=== PATIENT | female | born 1930 | race Asian ===

== ENCOUNTER 2019-05-29 20:44 | Inpatient (IN) | payer MEDICARE, MEDICAID ==
[~2019-05-29] VITALS: Ht 157.5 cm; Wt 36.7 kg
[~2019-05-29 20:44] MED LIST: ACETAMINOPHEN MC; ASPIR 8181 MG ORAL; CARDIZEM60 MG ORAL; CEFEPIME-D1 GM/50 ML IVPB; EPOGEN10000 UNIT IV; ISOSORBIDE MONO20 MG PO; METOPROLOL TAR100 M1 ORAL; METRONIDAZOLE500 MG ORAL; NEPRO CARB STE PO; RANITIDINE HCL150 MG ORAL; RENA-VITE RX T1 EAC1 PO; RENAGEL800 MG ORAL; TYLENOL EXTRA500 MG ORAL; VANCOMYCIN1 GM/250 M IVPB; ZITHROMAX500 MG ORAL
[2019-05-29 20:50] VITALS: BP 101/78
--- NOTE | 2019-05-29 20:50 | NUR ---
ED Nurse Note: Pt brought into ED by HIRAM from [facility] rehab facility for c/o SOB and low oxygen saturation. Per [facility], pt oxygen saturation was in the 70's and facility placed pt on NRB at 15L oxygen. Pt presents to ED on NRB at 15L oxygen. Pt has mild labor breathing at this time, otherwise no acute distress. Pt placed on [employer], ERMD bedside. Pt had face mask placed prior to arrival by HIRAM. Dialysis access noted to pt R upper chest. Safety measures in place and ISO precuations taken. Will continue to monitor pt.
--- NOTE | 2019-05-29 20:50 | NUR ---
ED Nurse Note: Pt is awake and alert at this time and able to state her name ([id number]).
--- NOTE | 2019-05-29 21:00 | NUR ---
ED Nurse Note: Pt does desat when taken off NRB, will keep pt on NRB at 15L oxygen at this time, o2 sat 100% currently.
--- NOTE | 2019-05-29 21:00 | NUR ---
ED Nurse Note: R arm severely edematous. IV access established, blood drawn and sent to lab.
--- NOTE | 2019-05-29 21:18 | Emergency Room Report ---
History of Present Illness General Chief Complaint: Dyspnea/Respdistress Source: Medical Record Present Illness HPI 88-year-old female history of end-stage renal disease on hemodialysis coronary artery disease, A. fib, dementia, anemia, hypertension presents from halfway facility due to hypoxia. Patient came from a facility with multiple coronavirus patients. Patient demented and nonverbal unable to provide any history. She did have coronavirus testing sent today and result is currently pending. Allergies: Coded Allergies: No Known Allergies (Unverified , 05/29/19) COVID-19 Screening Contact w/high risk pt: Yes Recent Travel to affected area: No Experienced COVID-19 symptoms?: Yes COVID-19 symptoms experienced: Shortness of Breath Patient History Reviewed Nursing Documentation: PMH: Agreed; PSxH: Agreed Nursing Documentation-PMH Hx Cardiac Problems: Yes Hx Hypertension: Yes Hx Pacemaker: Yes Hx Cancer: No Hx Gastrointestinal Problems: No Hx Dialysis: Yes Hx Neurological Problems: Yes Hx Dementia: Yes Review of Systems All Other Systems: limited - History is limited due to dementia Physical Exam Vital Signs Date Time Temp Pulse Resp B/P (MAP) Pulse Ox O2 Delivery O2 Flow Rate FiO2 05/29/19 20:48 99.1 62 26 155/74 (101) 96 Non-Rebreather Sp02 EP Interpretation: reviewed, abnormal General Appearance: thin, Chronically Ill Head: normocephalic, atraumatic Eyes: bilateral eye PERRL, bilateral eye EOMI ENT: hearing grossly normal, moist mucus membranes Neck: full range of motion, supple Respiratory: respiratory distress, other - Mild respiratory distress noted, dialysis access right upper chest wall Cardiovascular #1: normal peripheral pulses, other - Paced rhythm Gastrointestinal: non tender, soft, non-distended, no guarding Musculoskeletal: other - Lower extremities contracted Neurologic: alert, no focal defects Skin: normal color, warm/dry Medical Decision Making Diagnostic Impression: Primary Impression: Suspected 2019 novel coronavirus infection Additional Impressions: Hypoxia History of end stage renal disease ER Course Patient presents hypoxic from a fdc with positive coronavirus patients. Differential diagnosis included but not limited to pneumonia, CHF, fluid overload, coronavirus infection to name a few. Patient's oxygen saturation improved with supplemental oxygen. Septic work-up initiated. Coronavirus testing was sent at [facility] and is currently pending. Patient' s chest x-ray was consistent with pneumonia. Azithromycin given. Patient will be admitted to the hospital under Dr. Gould EKG Diagnostic Results EP Interpretation: Yes Rate: normal Rhythm: other - Paced rhythm Other Impression Paced rhythm with AV dual pacemaker, abnormal EKG Rhythm Strip Diag. Results EP Interpretation: yes Rate: 82 Rhythm: no ectopy, other - Paced rhythm Chest X-Ray Diagnostic Results Chest X-Ray Diagnostic Results : Chest X-Ray Ordered: Yes # of Views/Limited/Complete: 1 View Indication: Shortness of Breath EP Interpretation: Yes Interpretation: other - Cardiomegaly, diffuse right-sided infiltrate, pneumothorax Last Vital Signs Date Time Temp Pulse Resp B/P (MAP) Pulse Ox O2 Delivery O2 Flow Rate FiO2 05/29/19 20:48 99.1 62 26 155/74 (101) 96 Non-Rebreather Disposition: ADMITTED INPATIENT Condition: Serious Referrals: NON PHYSICIAN (PCP) Te Bhandari M.D. May 29, 2019 21:18
[2019-05-29 21:20] VITALS: BP 140/90
--- NOTE | 2019-05-29 21:20 | NUR ---
ED Nurse Note: Pt repositioned in bed for comfort, provided with warm blankets. Pt is awake and alert and able to nod head yes and no to simple questions. VSS. Will continue to monitor.
--- NOTE | 2019-05-29 21:20 | NUR ---
ED Nurse Note: Unable to obtain urine from straight cath, PAULO made aware.
[2019-05-29 21:29] LABS: BASOPHILS % (AUTO) 0.5 % (0.0-2.0); EOSINOPHILS % (AUTO) 0.5 % (0.0-3.0); HEMATOCRIT 44.7 % (37.0-47.0); HEMOGLOBIN 13.8 G/DL (12.0-16.0); LYMPHOCYTES % (AUTO) 17.2 % (20.0-45.0); MEAN CORPUSCULAR VOLUME 110 FL (80-99); MONOCYTES % (AUTO) 3.7 % (1.0-10.0); NEUTROPHILS % (AUTO) 78.1 % (45.0-75.0); PLATELET COUNT 117 K/UL (150-450); RED BLOOD COUNT 4.06 M/UL (4.20-5.40); RED CELL DISTRIBUTION WIDTH 15.9 % (11.6-14.8); WHITE BLOOD COUNT 8.3 K/UL (4.8-10.8)
[2019-05-29 22:04] LABS: ANION GAP 11 mmol/L (5-15); BLOOD UREA NITROGEN 48 mg/dL (7-18); CALCIUM 8.4 MG/DL (8.5-10.1); CARBON DIOXIDE 27 MMOL/L (21-32); CHLORIDE 102 MMOL/L (98-107); CREATININE 3.8 MG/DL (0.55-1.30); POTASSIUM 5.2 MMOL/L (3.5-5.1); SODIUM 140 MMOL/L (136-145)
[2019-05-29 22:17] LABS: ALANINE AMINOTRANSFERASE 16 U/L (12-78); ALBUMIN 2.7 G/DL (3.4-5.0); ALBUMIN/GLOBULIN RATIO 0.6 (1.0-2.7); ALKALINE PHOSPHATASE 148 U/L (46-116); ASPARTATE AMINO TRANSFERASE 47 U/L (15-37); BILIRUBIN,TOTAL 0.3 MG/DL (0.2-1.0); CKMB 3.8 NG/ML (0.0-3.6); CREATINE KINASE 52 U/L (26-308)
[2019-05-29 22:20] VITALS: BP 143/54
--- NOTE | 2019-05-29 22:20 | NUR ---
ED Nurse Note: Pt turned and repositioned and provided with warm blankets. Pt is awake and alert, resting in bed. Pt denies pain. Safety measures in place, will continue monitoring pt. VSS.
[2019-05-29] MEDS ORDERED: Azithromycin 500 MG in NS 275 ML IV ONE (22:30)
[2019-05-29 23:55] VITALS: BP 96/53
--- NOTE | 2019-05-29 23:55 | NUR ---
ED Nurse Note: Pt had episode of hypotension at 2350 of 85/48, ERMD made aware. Reassessed BP at this time and BP 96/53, ERMD aware.
[2019-05-30] VITALS (10 sets, daily range): BP systolic 97–125; BP diastolic 45–101
--- NOTE | 2019-05-30 01:00 | NUR ---
ED Nurse Note: Pt appears to be sleeping comfortably at this time with no acute distress. Pt oxygen saturation is 99% and she remains on 15L oxygen via NRB. Pt vital signs are stable. Will continue to monitor.
[2019-05-30] MEDS ORDERED: Hydroxychloroquine Fact Sheet MISC ONE (01:45)
--- NOTE | 2019-05-30 02:45 | NUR ---
ED Nurse Note: Pt turned and repositioned in bed. Pt is in no acute distress and vital signs remain stable as charted. Pt able to tolerate medication as ordered. Safety measures in place. Will continue to closely monitor pt.
[2019-05-30] MEDS ORDERED: LACTULOSE20 GM/301 ORAL (03:25)
[2019-05-30] MEDS ORDERED: LIPITOR20 MG ORAL (03:25)
[2019-05-30] MEDS ORDERED: NIFEDIPINE20 MG ORAL (03:25)
[2019-05-30] MEDS ORDERED: NORCO 5-325 TA1 EAC1 ORAL (03:25)
[2019-05-30] MEDS ORDERED: SENOKOT8.6 MG PO (03:25)
[2019-05-30] MEDS ORDERED: ELIQUIS2.5 MG PO (03:25)
[2019-05-30] MEDS ORDERED: BISACODYL5 MG ORAL (03:25)
[2019-05-30] MEDS ORDERED: NOVASOURCE RE1000 M1 PO (03:25)
[2019-05-30] MEDS ORDERED: ALLOPURINOL100 M1 ORAL (03:25)
[2019-05-30] MEDS ORDERED: METOPROLOL TART50 M1 ORAL (03:25)
[2019-05-30] MEDS ORDERED: RENA-VITE TABL0.8 M1 PO (03:25)
[2019-05-30] MEDS ORDERED: ISOSORBIDE DINIT5 MG ORAL (03:25)
[2019-05-30] MEDS ORDERED: CATAPRES0.1 MG ORAL (03:25)
--- NOTE | 2019-05-30 04:45 | NUR ---
ED Nurse Note: Pt appears to be sleeping at this time, no acute distress noted. Pt is breathing normal.
[2019-05-30] MEDS: dilTIAZem HCl 60mg tab ORAL SCH ×3 (06:00→22:00)
--- NOTE | 2019-05-30 06:00 | NUR ---
ED Nurse Note: RN did not administer cardizem due to pt BP of 115/58 and HR of 60. Pt HR has been high 50's/ low 60's for past hour.
--- NOTE | 2019-05-30 06:15 | NUR ---
ED Nurse Note: Redness noted to pt sacral area, no open wound at this time and redness to pt L big toe. 2 small wounds with minimal drainage noted to pt L upper thigh.
--- NOTE | 2019-05-30 06:15 | NUR ---
ED Nurse Note: Pt repositioned and turned at this time. Pt remains on 15L oxygen via NRB. Pt is in no acute distress at this time. Vital signs remain stable. Pt provided with warm blankets for comfort. Bed is in lowest position, safety mesures in place. ISO precuations taken. Will continue to monitor pt. AM labs drawn by RN and sent to lab.
--- NOTE | 2019-05-30 07:00 | NUR ---
HAND-OFF: Report given to JULIANNA Cheek.
--- NOTE | 2019-05-30 07:01 | NUR ---
ED Nurse Note: Report received from JULIANNA Reece. PT in bed resting, no acute distress is noted. VSS as documented. will continue to monitor.
[2019-05-30 07:12] LABS: ANION GAP 11 mmol/L (5-15); BLOOD UREA NITROGEN 52 mg/dL (7-18); CALCIUM 8.6 MG/DL (8.5-10.1); CARBON DIOXIDE 25 MMOL/L (21-32); CHLORIDE 104 MMOL/L (98-107); CREATININE 3.8 MG/DL (0.55-1.30); POTASSIUM 5.1 MMOL/L (3.5-5.1); SODIUM 140 MMOL/L (136-145)
[2019-05-30 07:22] LABS: ALANINE AMINOTRANSFERASE 16 U/L (12-78); ALBUMIN 2.5 G/DL (3.4-5.0); ALBUMIN/GLOBULIN RATIO 0.6 (1.0-2.7); ALKALINE PHOSPHATASE 116 U/L (46-116); ASPARTATE AMINO TRANSFERASE 42 U/L (15-37); BILIRUBIN,TOTAL 0.3 MG/DL (0.2-1.0)
[2019-05-30 07:34] LABS: BASOPHILS % (AUTO) 0.5 % (0.0-2.0); EOSINOPHILS % (AUTO) 0.1 % (0.0-3.0); HEMATOCRIT 39.2 % (37.0-47.0); HEMOGLOBIN 12.4 G/DL (12.0-16.0); LYMPHOCYTES % (AUTO) 13.6 % (20.0-45.0); MEAN CORPUSCULAR VOLUME 107 FL (80-99); MONOCYTES % (AUTO) 3.1 % (1.0-10.0); NEUTROPHILS % (AUTO) 82.7 % (45.0-75.0); PLATELET COUNT 102 K/UL (150-450); RED BLOOD COUNT 3.66 M/UL (4.20-5.40); WHITE BLOOD COUNT 6.9 K/UL (4.8-10.8)
--- NOTE | 2019-05-30 07:39 | NUR ---
ED Nurse Note: Called rod Mai/sonal in regards to HD order. awaiting call back at this time.
[2019-05-30] MEDS: Aspirin EC 81mg tab ORAL SCH (08:48)
--- NOTE | 2019-05-30 09:07 | NUR ---
ED Nurse Note: pt in bed resting, vss as documented. no acute distress present.
--- NOTE | 2019-05-30 09:21 | Diagnostic Imaging Report ---
Indication: Shortness of breath Technique: One view of the chest Comparison: 04/01/2015 Findings: Interim placement of a right jugular tunneled dialysis catheter. There is extensive interstitial and airspace infiltrate versus edema throughout the right lung. There is a right pleural effusion. There is evidence of some volume loss of the left lung,, although this may be exaggerated by leftward patient rotation. There is considerable retrocardiac consolidation and possibly a large left pleural effusion. The left upper lung remains aerated. The heart size is difficult to assess, probably mildly enlarged. There is evidence of a prior upper lumbar vertebral augmentation procedure as well as multiple thoracolumbar vertebral body compression fracture deformities Impression: Extensive diffuse interstitial and airspace disease throughout the right lung. May reflect pneumonia or pulmonary edema. Opacified left mid and lower hemithorax, likely combination of atelectasis, parenchymal consolidation, and pleural fluid
--- NOTE | 2019-05-30 11:35 | NUR ---
Guillermo collins in [facility] - 05/30/19 at 1138 by [email or web address] HAND-OFF: Report given to JULIANNA Sapp. Endorsed POC.
--- NOTE | 2019-05-30 11:38 | NUR ---
ED Nurse Note: Report given to JULIANNA Sapp and endorsed POC.
--- NOTE | 2019-05-30 12:59 | NUR ---
ED Nurse Note: Pt in bed resting, no acute distress is noted. VSS as documented.
--- NOTE | 2019-05-30 13:57 | NUR ---
ED Nurse Note: Pt was taken to tele room 209 accompanied by RN and carpet installer helper in stable condition via ryasir with surveillance system monitor. Report given to JULIANNA dyer. pt has no belongings.
--- NOTE | 2019-05-30 14:30 | NUR ---
NURSE NOTES: Received report from JULIANNA Foster. Pt in non-rebreather mask 15L, A/O x1, non-verbal since pt came in the unit. No s/sx of acute distress or pain. Tele monitor attached. Vitals checked (BP 110/64, HR 66, RR 22, Axillary temp 97.3, O2 sat 97%). Bed on lowest position, call light within reach. Will continue to monitor.
[2019-05-30] MEDS ORDERED: Heparin Sod 1000 units/ml 10ml IV PRN (15:46)
--- NOTE | 2019-05-30 17:25 | NUR ---
NURSE NOTES: Called pt's NOK, obtained consent for HD. Explained to NOK that MD prescribed hydroxychloroquine to the pt, explained possible side effect of medication, NOK verbalized understanding and gave authorization to administer the dose. Asked the NOK to clarify the POLST of the pt, NOK stated Full code. Will inform MD about the changes.
--- NOTE | 2019-05-30 17:29 | NUR ---
NURSE NOTES: Called [facility] and talked to JULIANNA Watson. Asked if pt is able to swallow, as the med hx stated dysphagia. Walter LEVINE confirmed that pt can swallow crushed meds, with apple sauce.
--- NOTE | 2019-05-30 17:35 | NUR ---
NURSE NOTES: Informed DR Gould about the changes that the NOK wanted for the POLST of the pt.
--- NOTE | 2019-05-30 17:40 | NUR ---
NURSE NOTES: Notified Dr Gould that pt's family would like her to be full code. No code status order yet from .
--- NOTE | 2019-05-30 20:37 | NUR ---
NURSE NOTES: Nurse Mya Gonzalez and I called the next of kin, Iggy Huntley, to clarify POLST. It lists DNR but full treatment is also checked, Family member, next of kin, states he wants full code, full treatment. Discussed with charge nurse, John Underwood.
--- NOTE | 2019-05-30 20:49 | NUR ---
NURSE NOTES: POLST is unclear, will defer to hospital policy as there is no clear order. Per hospital policy pt is assumed full code when no POLST available. Dr will need to clarify POLST and discuss further with family member, Iggy Huntley further wishes and receive a signature and signed POLST.
--- NOTE | 2019-05-30 20:52 | NUR ---
NURSE NOTES: Received report from JULIANNA Roque. Pt on non-rebreather mask 15L, A/O x1, non-verbal. No s/sx of acute distress or pain. Bed in lowest position, locked, side rails x2 call light within reach. Will continue to monitor. Pt is to have hemodialysis tonight 05/29 and 05/30.
--- NOTE | 2019-05-30 21:12 | NUR ---
HAND-OFF: Report given to JULIANNA Busby. Pt in stable condition. Endorsed plan of care.
--- NOTE | 2019-05-30 22:49 | NUR ---
NURSE NOTES: Pt completed dialysis, 3 L removed, in no acute distress, resting at this time.
[2019-05-31] VITALS: BP 115/62
--- NOTE | 2019-05-31 03:00 | Progress Note ---
DATE: 05/30/2019 CARDIOLOGY PROGRESS NOTE SUBJECTIVE: The patient still has congestion, cough, some shortness of breath. She is afebrile, sinus rhythm. PHYSICAL EXAMINATION: VITAL SIGNS: Blood pressure 125/60, pulse 60, respiratory rate 22. LUNGS: Bilateral breath sounds. Diminished at the left. HEART: Regular rhythm and rate. Normal S1, S2 with 1/6 systolic murmur at base. ABDOMEN: Soft. EXTREMITIES: No edema. LABORATORY AND DIAGNOSTIC DATA: Sodium 140, potassium 5.1, bicarb 25, BUN 52, creatinine 3.8. Troponin . Natriuretic peptide over 35,000. White count 6.9, hemoglobin 12.4. Qtc interval is 425 milliseconds. IMPRESSION: 1. COVID-19 pneumonia. 2. Pleural effusions. 3. Acute on chronic diastolic congestive heart failure. 4. Paroxysmal atrial fibrillation. 5. End-stage renal disease. PLAN: 1. Antimicrobials including hydroxychloroquine. 2. Hemodialysis with ultrafiltration. 3. Titrate cardiovascular regimen. 4. Monitor electrolytes closely. 5. Monitor QTc interval, we will follow. Brant Gould M.D. DR: Linda JOB#: [id number] CC:
[2019-05-31 04:00] VITALS: BP 113/51
[2019-05-31] MEDS ORDERED: Heparin Sod 1000 units/ml 10ml IV PRN (06:00)
[2019-05-31] MEDS: dilTIAZem HCl 60mg tab ORAL SCH ×3 (06:00→21:09)
--- NOTE | 2019-05-31 07:22 | NUR ---
HAND-OFF: Report given to JULIANNA Cardona.
[2019-05-31 08:00] VITALS: BP 112/57
--- NOTE | 2019-05-31 08:00 | NUR ---
NURSE NOTES: Received report from Ting/RN, Patient is asleep, lying semi-garcía, resting comfortably. On 15L non-rebreather mask, No distress/SOB noted. potline monitor in place. IV on Left Hand, patent, and asymptomatic. Robina pain at this time. Bed in low position and locked, Call light within reach, Encouraged to use call light when needed. Will continue plan of care.
[2019-05-31] MEDS: Aspirin EC 81mg tab ORAL SCH (09:16)
[2019-05-31 12:00] VITALS: BP 104/56
--- NOTE | 2019-05-31 12:44 | General Progress Note ---
Assessment/Plan Problem List: (1) Paroxysmal a-fib ICD Codes: I48.0 - Paroxysmal atrial fibrillation SNOMED: 419752302 (2) Atrial fibrillation with rapid ventricular response ICD Codes: I48.91 - Unspecified atrial fibrillation SNOMED: 76392695, 581771015, 295756975921588 (3) Septic shock ICD Codes: A41.9 - Sepsis, unspecified organism; R65.21 - Severe sepsis with septic shock SNOMED: 72832712 (4) Hypoxia ICD Codes: R09.02 - Hypoxemia SNOMED: 040118706 (5) Pneumonia ICD Codes: J18.9 - Pneumonia, unspecified organism SNOMED: 621007399 (6) End stage renal disease ICD Codes: N18.6 - End stage renal disease SNOMED: 19510957 (7) History of end stage renal disease ICD Codes: Z87.448 - Personal history of other diseases of urinary system SNOMED: 558073454 (8) Suspected 2019 novel coronavirus infection ICD Codes: R68.89 - Other general symptoms and signs SNOMED: 235722270 Status: stable Assessment/Plan: Continue IV antibiotics per ID. Follow-up positive blood cultures. Consider deseeding PermCath if cultures come back. Coronavirus treatment per ID. Dialysis per renal. Supplemental oxygen titrate to keep sats greater than 92%. DVT and stress ulcer prophylaxis. Monitor blood pressure. Prognosis is guarded. Subjective ROS Limited/Unobtainable: No Constitutional: Reports: malaise, weakness HEENT: Reports: no symptoms Cardiovascular: Reports: no symptoms Respiratory: Reports: cough Gastrointestinal/Abdominal: Reports: no symptoms Genitourinary: Reports: no symptoms Neurologic/Psychiatric: Reports: depressed Endocrine: Reports: no symptoms Hematologic/Lymphatic: Reports: anemia Allergies: Coded Allergies: No Known Allergies (Unverified , 05/29/19) All Systems: reviewed and negative except above Subjective No overnight events. Stable on oxygen. No fevers or chills. No distress. On Truxima IV antibiotics. Cultures are growing gram-positive cocci in clusters. Objective Last 24 Hour Vital Signs Date Time Temp Pulse Resp B/P (MAP) Pulse Ox O2 Delivery O2 Flow Rate FiO2 05/31/19 06:00 60 110/62 05/31/19 04:00 57 05/31/19 04:00 15.0 05/31/19 04:00 99.8 65 20 113/51 (71) 96 05/31/19 00:00 81 05/31/19 00:00 15.0 05/31/19 00:00 99.6 85 22 115/62 (79) 96 05/30/19 22:00 58 125/60 05/30/19 21:19 98.0 60 22 125/60 (81) 92 05/30/19 21:00 Non-Rebreather 15.0 05/30/19 20:00 61 05/30/19 20:00 15.0 05/30/19 20:00 15.0 05/30/19 20:00 98.0 60 22 125/60 (81) 92 05/30/19 18:45 66 110/64 05/30/19 16:00 15.0 05/30/19 15:51 57 05/30/19 15:48 Non-Rebreather 05/30/19 13:57 98.0 61 20 110/80 98 Non-Rebreather 15.0 05/30/19 12:57 97.8 60 19 112/72 97 Non-Rebreather 15.0 Intake and Output 05/30/19 05/31/19 19:00 07:00 Intake Total 410 ml Output Total 2500 ml Balance 410 ml -2500 ml Intake Oral 410 ml Hemodialysis UF 2500 ml # Voids 3 Height (Feet): 5 Height (Inches): 2.00 Weight (Pounds): 126 General Appearance: WD/WN, alert, lethargic, confused Neck: supple Cardiovascular: normal rate, regular rhythm Respiratory/Chest: chest wall non-tender, lungs clear, normal breath sounds, no respiratory distress, no accessory muscle use Abdomen: normal bowel sounds, non tender, soft Edema: no edema noted Arm (L), no edema noted Arm (R), no edema noted Leg (L), no edema noted Leg (R), no edema noted Pedal (L), no edema noted Pedal (R), no edema noted Generalized Neurologic: disoriented, unresponsive Objective chest wall perm cath Denis Whitlock MD May 31, 2019 12:44
[2019-05-31] MEDS ORDERED: Vancomycin 1gm/D5W 275ml IVPB ONE ×2 (14:30)
[2019-05-31 16:00] VITALS: BP 107/67
[2019-05-31] MEDS ORDERED: Tubing IV Secondary IV ONE (16:51)
--- NOTE | 2019-05-31 17:14 | Consultation ---
DATE OF CONSULTATION: 05/31/2019 INFECTIOUS DISEASES CONSULTATION CONSULTING PHYSICIAN: Dwight Soto M.D. REFERRING PHYSICIAN: Brant Gould M.D. REASON FOR CONSULTATION: To rule out COVID-19 pneumonia. HISTORY OF PRESENTING ILLNESS: This is an 88-year-old lady with history of renal failure, on dialysis, coronary artery disease, dementia, hypertension, who came in from a long term facility with hypoxia. There was a concern for a COVID-19 pneumonia and an Infectious Diseases consultation has been obtained for antibiotics. PAST MEDICAL HISTORY: 1. History of hypertension. 2. History of renal failure on dialysis. 3. Coronary artery disease. 4. Dementia. 5. Atrial fibrillation. 6. Anemia. SOCIAL HISTORY: Unknown. FAMILY HISTORY: Unknown. REVIEW OF SYSTEMS: Unable to obtain currently. MEDICATIONS: As an inpatient, she is on hydroxychloroquine, heparin, , aspirin, Renvela, diltiazem. ALLERGIES: No known drug allergies. PHYSICAL EXAMINATION: VITAL SIGNS: Temperature of 99.8, T-max of 99.8, pulse of 60, respiratory rate 20, blood pressure 110/62, O2 saturation of 96%. Examination deferred due to possibility of COVID-19 pneumonia. LABORATORY AND DIAGNOSTIC DATA: Labs, white count 6.9, hemoglobin 12.4, hematocrit 39.2, MCV 107, platelet count of 102,000, neutrophils of 82%. Sodium 140, potassium 5.1, chloride 104, bicarb 25, BUN 52, creatinine 3.8, glucose 95, calcium 8.6. Total bilirubin 0.3, AST 42, ALT 16, and alkaline phosphatase 116. Troponin 0.16. Beta-natriuretic peptide . Total protein 6.8, albumin 2.5. Hepatitis B surface antigen is pending. Blood cultures are growing gram-positive cocci in clusters. Chest x-ray showing extensive diffuse interstitial and airspace disease throughout the right lung may reflect pneumonia, pulmonary edema, opacified left mid and lower hemithorax likely combination of atelectasis and consolidation and pleural fluid. ASSESSMENT: This is an 88-year-old lady with history of hypertension, dementia, renal failure, on dialysis, coronary artery disease, who comes in with hypoxia: 1. Would like to rule out COVID-19 pneumonia. 2. Hypertension. 3. Dementia. 4. Renal failure, on dialysis. 5. Gram-positive sepsis. PLAN: 1. Continue hydroxychloroquine. 2. Continue contact isolation. 3. We will start the patient on IV vancomycin. 4. We will follow up cultures and adjust antibiotics accordingly. I would like to thank, Dr. Gould for this consultation. Dwight Soto M.D. DR: BRYAN JOB#: [id number] CC: Brant Gould M.D.
--- NOTE | 2019-05-31 19:45 | NUR ---
HAND-OFF: Report given to Krunal/RN, Patient is lying semi-garcía's, resting comfortably. Endorsed plan of care.
--- NOTE | 2019-05-31 19:51 | NUR ---
NURSE NOTES: Report received from JULIANNA Cardona. Patient on semi-garcía's position. on 15L nonrebreather mask. IV intact and flushed. No erythema, bleeding, or infiltration. AOX1. Arousable and responds to name. Bed rails raised x2. Bed in lowest position. Repositioned. Call light placed within reach. Will continue to monitor.
[2019-05-31 20:00] VITALS: BP 140/57
--- NOTE | 2019-05-31 20:44 | Consultation ---
DATE OF CONSULTATION: 05/31/2019 PULMONARY CONSULTATION CONSULTING PHYSICIAN: Aleks Cabrera MD. HISTORY OF PRESENT ILLNESS: This is an 88-year-old female brought in from the [place] [facility] with a history of hypoxia. The patient has been exposed to multiple patients with COVID-19 positivity at the [place] [facility]. The patient has dementia, unable to verbalize any history. Currently, her COVID-19 status is unknown. She is influenza A and B negative. The patient was noted to be hypoxic and desaturating. Nurses placed her on a nonrebreather mask. CURRENT MEDICATIONS: Include aspirin, Cardizem, subcu heparin, the patient has received Plaquenil, and is also on Renvela. She also got vancomycin. PAST MEDICAL HISTORY: Notable for hypertension, permanent pacemaker, previous CVA, dementia. She is a dialysis patient. REVIEW OF SYSTEMS: Unreliable. PHYSICAL EXAMINATION: GENERAL: Reveals elderly female. VITAL SIGNS: Blood pressure 150/70, heart rate 68, respirations 22, T-max 100.1, O2 sat 96% on non-rebreather mask. HEENT: Unremarkable. LUNGS: Decreased breath sounds bilaterally. HEART: Normal heart sounds. CHEST: She has a pacemaker noted. Dialysis access in right upper chest wall. ABDOMEN: Soft. EXTREMITIES: There is no edema. Her lower extremities are contracted. LABORATORY AND DIAGNOSTIC DATA: X-ray of chest shows opacification in the left and mid lower thorax, suspect pneumonia. There is extensive diffuse disease throughout both lung gutierrez. Hemoglobin 12.4, white count 6.9. Creatinine 3.8. There is a dual-chamber pacemaker noted. IMPRESSION: 1. Probable COVID-19 pneumonia. 2. Pulmonary edema. 3. ESRD, on dialysis. 4. CHF. 5. Atrial fibrillation. DISCUSSION: Admit to the hospital. I have reviewed the x-ray personally. I do not see a clear evidence of an effusion; however, the film is located with obscuring of the left lower lung field due to enlarged cardiac silhouette and right lung field with extensive infiltrates. We will follow carefully. Agree with oxygen and pulmonary hygiene. We will investigate code status when available. Aleks Cabrera M.D. DR: LIZZETH JOB#: [id number] CC:
--- NOTE | 2019-05-31 23:15 | Consultation ---
DATE OF CONSULTATION: CONSULTING PHYSICIAN: Bruce Lainez MD. REFERRING PHYSICIAN: Denis Whitlock MD. REASON FOR CONSULTATION: End-stage renal disease, shortness of breath. HISTORY OF PRESENT ILLNESS: The patient presents with shortness of breath. She is in COVID isolation as she has bilateral infiltrates and there was concern for CHF. She is an 88-year-old [place] lady with end-stage renal disease via PermCath, history is taken from chart review. The patient is not Polish speaking. She was hospitalized 04/13/2019, [address] [facility] for failure to thrive, multiple wounds, and possible pneumonia at that time. There is a history of hypertension, gastritis, recurrent fungal infections, spinal stenosis, multiple decubitus ulcers. PAST SURGICAL HISTORY: PermCath and multiple dialysis, AV access, which fails. HABITS: She is a nonsmoker, nondrinker, advanced directives are DNR. MEDICATIONS: Include the following Lipitor, isosorbide, Senokot, Nicole-Sandhya, DSS, Fertile, metoprolol, nifedipine, Eliquis, allopurinol, Dulcolax suppository, Tylenol, lactulose, clonidine, Mircera. REVIEW OF SYSTEMS: The patient is unable. On prior hospitalizations, she had acute lactic acidosis, bilateral pleural effusions, urinary tract infection, acute pulmonary edema. PHYSICAL EXAMINATION: GENERAL: The patient is seen on dialysis, has the dialysis PermCath. VITAL SIGNS: Temperature 97.4, pulse 63, respirations 18, blood pressure 104/56. HEAD EYES, EARS, NOSE, AND THROAT: There is no scleral icterus. Oral mucosa moist. NECK: No adenopathy. LUNGS: She is tachypneic, distant breath sounds. HEART: Regular rhythm. No murmur. ABDOMEN: Soft. No focal tenderness. EXTREMITIES: No edema. LABORATORY DATA: Her pertinent labs show white count of 6.9, hemoglobin 12.4. Initial sodium 140, potassium 5.2, BUN 48, creatinine 3.8. Troponin 0.155 and 0.160. BNP greater than 35,000. Albumin 2.7. IMPRESSION: 1. End-stage renal disease. 2. Congestive heart failure, acute on chronic. 3. Pulmonary infiltrates, possible from CHF, possible pneumonia. 4. Rule out COVID-19. 5. Moderate to severe protein-calorie malnutrition. 6. History of hypertension. 7. History of decubiti. 8. History of gastritis. 9. History of spinal stenosis. 10. History of bedridden state. 11. The patient had serial dialysis for fluid removal. We will follow up on chest x-ray. COVID-19. Received pulmonary care. Condition is guarded in view of her multiple comorbidities. Bruce Lainez M.D. DR: AMELIA JOB#: [id number] CC:
[2019-06-01] VITALS: BP 138/55
--- NOTE | 2019-06-01 02:25 | NUR ---
NURSE NOTES: Patient comfortably asleep on bed. On 15L nonrebreather mask. Bed rails raised. Bed in lowest position. Call light placed within reach. No signs of acute distress or shortness of breath. Will continue to monitor.
--- NOTE | 2019-06-01 03:44 | Progress Note ---
DATE: 05/31/2019 CARDIOLOGY PROGRESS NOTE SUBJECTIVE: The patient remains on oxygen supplementation with some congestion noted. Blood cultures are positive. She remains on isolation for COVID-19. OBJECTIVE: VITAL SIGNS: Blood pressure 110/62, heart rate 60, respiratory rate 20, temperature 99.8. Monitored rhythm, AFib with ventricular pacing by demand. LUNGS: Bilateral breath sounds. Rhonchi. CARDIAC: Irregularly irregular rhythm. Normal S1, S2. A 1/6 systolic murmur at apex. ABDOMEN: Soft. EXTREMITIES: Trace edema. SKIN: PermCath site with no drainage. LABORATORY DATA: No new labs today. IMPRESSION: 1. Sepsis. 2. Bacteremia. 3. COVID-19 pneumonia. 4. End-stage renal disease. 5. Paroxysmal atrial fibrillation. 6. Permanent pacemaker. 7. Acute on chronic diastolic congestive heart failure. 8. Acute myocardial ischemia and possible qve-HL-axrgucksp infarction. 9. Severe protein-calorie malnutrition. 10. Critical and guarded. 11. Increased risk for endocarditis. PLAN: 1. Hemodialysis with ultrafiltration. 2. Respiratory hygiene. 3. Cardiac monitoring. 4. Observe for increasing QT interval on hydroxychloroquine therapy. 5. Antimicrobials per Infectious Disease [employer] consultant. 6. Possible need to remove and replace PermCath. 7. Follow up blood culture results. 8. Echocardiogram. 9. Titrate cardiovascular regimen based on clinical parameters including blood pressure and heart failure management. Brant Gould M.D. DR: Zakia JOB#: [id number] CC:
[2019-06-01 04:00] VITALS: BP 121/57
--- NOTE | 2019-06-01 04:00 | Consultation ---
DATE OF CONSULTATION: 05/29/2019 CARDIOLOGY CONSULTATION CONSULTING PHYSICIAN: Brant Gould MD. REQUESTING PHYSICIAN: Denis Whitlock MD. REASON FOR CONSULTATION: Cardiovascular management in the setting of COVID-19 pneumonia and underlying cardiomyopathy. HISTORY OF PRESENT ILLNESS: This is an 88-year-old female who resides at a [facility] facility, who was noted to be hypoxic and congested with a positive COVID-19 swab noted. She was transferred to the emergency room for evaluation and further care. PAST MEDICAL HISTORY: Includes coronary artery disease, paroxysmal atrial fibrillation, permanent pacemaker, end-stage renal disease on hemodialysis, cerebrovascular disease with dementia, anemia of chronic kidney disease, and hypertensive heart disease. ALLERGIES: None known. MEDICATIONS: Medications prior to admission, reviewed and reconciled. FAMILY HISTORY: Noncontributory. SOCIAL HISTORY: Negative for smoking, alcohol, or substance abuse. REVIEW OF SYSTEMS: Cannot be obtained from the patient; however, pertinent data from review of medical records and [facility] facility chart is performed x20 minutes and outlined above. PHYSICAL EXAMINATION: VITAL SIGNS: Temperature 99.1, blood pressure 155/74, heart rate 62, respiratory rate 26. GENERAL: Temporal wasting, ill appearing, mild congestion, and respiratory distress. LUNGS: Bilateral rhonchi. CARDIAC: Irregularly irregular rhythm. Normal S1 and S2 with a 1/6 systolic murmur at the apex. ABDOMEN: Soft, nontender. PermCath site is clean and dry on the chest. EXTREMITIES: There is no edema. NEUROLOGIC: Reveals mild cognitive impairment. LABORATORY AND DIAGNOSTIC DATA: EKG reveals AV sequential pacing. Chest x-ray reveals bilateral infiltrates. White count 8.3, hemoglobin 13.8. Sodium 140, potassium 5.2. Troponin 0.155. Bicarb 27, BUN 48, creatinine 3.8, albumin 2.7. IMPRESSION: 1. COVID-19 pneumonia. 2. End-stage renal disease. 3. Cardiomyopathy. 4. Hypertensive heart disease. 5. Coronary atherosclerosis. 6. Acute on chronic diastolic congestive heart failure. 7. Acute myocardial ischemia. 8. Possible woz-SM-xerujyrbd infarction. 9. Moderate protein-calorie malnutrition. 10. Cerebrovascular disease with dementia. 11. Permanent pacemaker. 12. Paroxysmal atrial fibrillation. PLAN: 1. Cardiac monitoring. 2. Respiratory hygiene. 3. Infectious Disease evaluation. 4. Safety use of hydroxychloroquine, however, cannot reliably monitor QTc interval with paced rhythm. 5. We will need to monitor electrolytes closely. 6. Hemodialysis with ultrafiltration. 7. Follow up culture results. 8. Empiric antimicrobials. 9. Serial troponins. 10. Anti-platelet therapy and beta-blockade if blood pressure parameters can tolerate. Brant Gould M.D. DR: Zakia JOB#: [id number] CC:
[2019-06-01] MEDS: dilTIAZem HCl 60mg tab ORAL SCH ×3 (06:32→22:00)
--- NOTE | 2019-06-01 07:22 | NUR ---
NURSE NOTES: Received report from JULIANNA Saxena. Patient in bed resting, no active s/s cardiac, respiratory distress noticed at this time. Patient in bed resting, no active s/s cardiac, respiratory distress noticed at this time. Endorsed patient was on Non-rebreather 15L during the night O2 sat 95%. IV on left hand 22G, asymptomatic, patent, intact. Endorsed patient scheduel for HD today 06/01/19, already called [facility] nephrology, COVID 19 specimen sent yesterday 05/31/19. Bed in lowest position, side rails upx2, call light within reach, bed alarm on. Will continue to monitor.
--- NOTE | 2019-06-01 07:56 | NUR ---
HAND-OFF: Report given to JULIANNA Fleming. Plan of care endorsed.
[2019-06-01 08:00] VITALS: BP 115/54
[2019-06-01] MEDS: Aspirin EC 81mg tab ORAL SCH (08:47)
--- NOTE | 2019-06-01 08:48 | General Progress Note ---
Assessment/Plan Problem List: (1) Paroxysmal a-fib ICD Codes: I48.0 - Paroxysmal atrial fibrillation SNOMED: 183635830 (2) Atrial fibrillation with rapid ventricular response ICD Codes: I48.91 - Unspecified atrial fibrillation SNOMED: 38355298, 137127472, 759464495330466 (3) Septic shock ICD Codes: A41.9 - Sepsis, unspecified organism; R65.21 - Severe sepsis with septic shock SNOMED: 69133714 (4) Hypoxia ICD Codes: R09.02 - Hypoxemia SNOMED: 056370014 (5) Pneumonia ICD Codes: J18.9 - Pneumonia, unspecified organism SNOMED: 867236655 (6) End stage renal disease ICD Codes: N18.6 - End stage renal disease SNOMED: 62278786 (7) History of end stage renal disease ICD Codes: Z87.448 - Personal history of other diseases of urinary system SNOMED: 031232265 (8) Suspected 2019 novel coronavirus infection ICD Codes: R68.89 - Other general symptoms and signs SNOMED: 887340935 Status: stable Assessment/Plan: Continue IV antibiotics per ID. Follow-up positive blood cultures. perm cath care. Coronavirus treatment per ID. Dialysis per renal. Supplemental oxygen titrate to keep sats greater than 92%. DVT and stress ulcer prophylaxis. Monitor blood pressure. Prognosis is guarded. Subjective ROS Limited/Unobtainable: No Constitutional: Reports: malaise, weakness HEENT: Reports: no symptoms Cardiovascular: Reports: no symptoms Respiratory: Reports: shortness of breath Gastrointestinal/Abdominal: Reports: no symptoms Genitourinary: Reports: no symptoms Neurologic/Psychiatric: Reports: pre-existing deficit Endocrine: Reports: no symptoms Hematologic/Lymphatic: Reports: anemia Allergies: Coded Allergies: No Known Allergies (Unverified , 05/29/19) All Systems: reviewed and negative except above Subjective No overnight events. Stable on oxygen(NRB). has pills in her mouth, No fevers or chills. No distress. On IV antibiotics. cultures noted. Objective Last 24 Hour Vital Signs Date Time Temp Pulse Resp B/P (MAP) Pulse Ox O2 Delivery O2 Flow Rate FiO2 06/01/19 06:32 68 121/57 06/01/19 04:00 86 06/01/19 04:00 99.9 68 21 121/57 (78) 98 06/01/19 04:00 15.0 06/01/19 00:00 99.4 81 21 138/55 (82) 95 06/01/19 00:00 15.0 06/01/19 00:00 75 05/31/19 21:09 73 140/57 05/31/19 21:00 Non-Rebreather 15.0 05/31/19 20:00 99.9 73 23 140/57 (84) 98 05/31/19 20:00 15.0 05/31/19 20:00 62 05/31/19 16:00 15.0 05/31/19 16:00 60 05/31/19 16:00 97.1 69 18 107/67 (80) 95 05/31/19 14:00 68 104/56 05/31/19 12:00 97.4 63 18 104/56 (72) 95 05/31/19 12:00 68 05/31/19 12:00 15.0 05/31/19 09:00 Non-Rebreather 15.0 Intake and Output 05/31/19 06/01/19 19:00 07:00 Intake Total 600 ml 180 ml Output Total 6000 ml 450 ml Balance -5400 ml -270 ml Intake Oral 600 ml 180 ml Output Urine Total 450 ml Hemodialysis UF 6000 ml # Voids 1 1 Height (Feet): 5 Height (Inches): 2.00 Weight (Pounds): 126 General Appearance: WD/WN, lethargic, confused Neck: supple Cardiovascular: regular rhythm Respiratory/Chest: no respiratory distress, no accessory muscle use, rhonchi - bilaterally Abdomen: normal bowel sounds, non tender, soft, no organomegaly Edema: no edema noted Arm (L), no edema noted Arm (R), no edema noted Leg (L), no edema noted Leg (R), no edema noted Pedal (L), no edema noted Pedal (R), no edema noted Generalized Objective chest wall perm cath Denis Whitlock MD Jun 01, 2019 08:48
[2019-06-01] MEDS ORDERED: Heparin 1000 units/ml 1ml Vial IV PRN (09:00)
--- NOTE | 2019-06-01 10:19 | NUR ---
NURSE NOTES: Dr. Whitlock made aware patient was running low grade fever, 99.8, since last night, no new order at this time. Will continue to follow up.
--- NOTE | 2019-06-01 10:24 | NUR ---
NURSE NOTES: Per Dr. Whitlock, Tylenol 650mg PO q4h prn. Order noted, entered, carried out.
--- NOTE | 2019-06-01 11:11 | Pulmonology Progress Note ---
Assessment/Plan Assessment/Plan IMPRESSION: 1. Probable COVID-19 pneumonia. 2. Pulmonary edema. 3. ESRD, on dialysis. 4. CHF. 5. Atrial fibrillation. DISCUSSION: I have reviewed the x-ray personally. I do not see a clear evidence of an effusion; however, the film is rotated with obscuring of the left lower lung field due to enlarged cardiac silhouette; her right lung field has extensive infiltrates. I will follow carefully. Agree with oxygen and pulmonary hygiene. Aleks Cabrera M.D. Subjective Interval Events: None new Constitutional: Reports: no symptoms HEENT: Repors: no symptoms Respiratory: Reports: shortness of breath Cardiovascular: Reports: no symptoms Gastrointestinal/Abdominal: Reports: no symptoms Allergies: Coded Allergies: No Known Allergies (Unverified , 05/29/19) Objective Last 24 Hour Vital Signs Date Time Temp Pulse Resp B/P (MAP) Pulse Ox O2 Delivery O2 Flow Rate FiO2 06/01/19 09:00 Non-Rebreather 15.0 06/01/19 08:00 76 06/01/19 08:00 99.9 70 21 115/54 (74) 94 06/01/19 08:00 14.0 06/01/19 06:32 68 121/57 06/01/19 04:00 86 06/01/19 04:00 99.9 68 21 121/57 (78) 98 06/01/19 04:00 15.0 06/01/19 00:00 99.4 81 21 138/55 (82) 95 06/01/19 00:00 15.0 06/01/19 00:00 75 05/31/19 21:09 73 140/57 05/31/19 21:00 Non-Rebreather 15.0 05/31/19 20:00 99.9 73 23 140/57 (84) 98 05/31/19 20:00 15.0 05/31/19 20:00 62 05/31/19 16:00 15.0 05/31/19 16:00 60 05/31/19 16:00 97.1 69 18 107/67 (80) 95 05/31/19 14:00 68 104/56 05/31/19 12:00 97.4 63 18 104/56 (72) 95 05/31/19 12:00 68 05/31/19 12:00 15.0 Intake and Output 05/31/19 06/01/19 19:00 07:00 Intake Total 600 ml 180 ml Output Total 6000 ml 450 ml Balance -5400 ml -270 ml Intake Oral 600 ml 180 ml Output Urine Total 450 ml Hemodialysis UF 6000 ml # Voids 1 1 General Appearance: no acute distress HEENT: normocephalic Respiratory/Chest: chest wall non-tender, decreased breath sounds Cardiovascular: normal peripheral pulses Abdomen: normal bowel sounds Microbiology Date/Time Source Procedure Growth Status 05/29/19 21:00 Blood Blood Culture - Preliminary NO GROWTH AFTER 48 HOURS Resulted 05/29/19 20:45 Blood Blood Culture - Final Staphylococcus Warneri Complete 05/30/19 06:00 Nasal Nares MRSA Culture - Final NO METHICILLIN RESISTANT STAPH AUREUS... Complete 05/29/19 21:00 Nasal Nares - Final Complete 05/29/19 21:00 Nasal Nares - Final Complete 05/30/19 06:00 Rectum VRE Culture - Final NO VANCOMYCIN RESISTANT ENTEROCOCCUS ... Complete 05/30/19 06:00 Rectum Received Current Medications Medications (Trade) Dose Ordered Sig/Debra Route PRN Reason Start Time Stop Time Status Last Admin Dose Admin Acetaminophen (Tylenol) 650 mg Q4H PRN ORAL Temp >100.5 06/01/19 10:30 07/01/19 10:29 Albumin Human 100 ml @ 200 mls/hr PRN PRN IV sbp<90 during hd 06/01/19 09:00 06/01/19 23:59 Aspirin (Ecotrin) 81 mg DAILY ORAL 05/30/19 09:00 07/14/19 08:59 06/01/19 08:47 Diltiazem HCl (Cardizem) 60 mg EVERY 8 HOURS ORAL 05/31/19 14:00 06/30/19 13:59 06/01/19 06:32 Heparin Sodium (Porcine) (Heparin) 500 unit ONCE PRN IV dialysis 06/01/19 09:00 06/01/19 23:59 Hydroxychloroquine Sulfate (Plaquenil) 200 mg TWICE A DAY ORAL 05/31/19 09:00 06/03/19 18:01 06/01/19 08:47 Sevelamer Carbonate (Renvela) 800 mg TIAC ORAL 05/30/19 06:55 08/28/19 06:54 06/01/19 06:32 Vancomycin HCl (Vanco rx to dose) 1 ea DAILY PRN MISC Per rx protocol 05/31/19 12:00 06/30/19 11:59 Aleks Cabrera MD Jun 01, 2019 11:11
[2019-06-01 12:00] VITALS: BP 117/58
[2019-06-01 14:03] LABS: BASOPHILS % (AUTO) 0.2 % (0.0-2.0); EOSINOPHILS % (AUTO) 0.3 % (0.0-3.0); HEMATOCRIT 38.6 % (37.0-47.0); HEMOGLOBIN 12.7 G/DL (12.0-16.0); LYMPHOCYTES % (AUTO) 11.4 % (20.0-45.0); MEAN CORPUSCULAR VOLUME 103 FL (80-99); MONOCYTES % (AUTO) 3.3 % (1.0-10.0); NEUTROPHILS % (AUTO) 84.8 % (45.0-75.0); PLATELET COUNT 129 K/UL (150-450); RED BLOOD COUNT 3.76 M/UL (4.20-5.40); RED CELL DISTRIBUTION WIDTH 14.3 % (11.6-14.8)
[2019-06-01 14:43] LABS: CALCIUM 8.9 MG/DL (8.5-10.1)
[2019-06-01 14:44] LABS: CHLORIDE 106 MMOL/L (98-107); POTASSIUM 3.9 MMOL/L (3.5-5.1); SODIUM 147 MMOL/L (136-145)
[2019-06-01 14:45] LABS: ANION GAP 13 mmol/L (5-15); BLOOD UREA NITROGEN 41 mg/dL (7-18); CARBON DIOXIDE 28 MMOL/L (21-32); CREATININE 3.7 MG/DL (0.55-1.30); PHOSPHORUS 3.7 MG/DL (2.5-4.9)
--- NOTE | 2019-06-01 15:20 | Nephrology Progress Note ---
Assessment/Plan Problem List: (1) End stage renal disease (2) Pneumonia (3) Hypoxia (4) Suspected 2019 novel coronavirus infection (5) Paroxysmal a-fib Plan fluid removal on HD for chfrx for possible covid19 per ID Subjective ROS Limited/Unobtainable: Yes Objective Objective Last 24 Hour Vital Signs Date Time Temp Pulse Resp B/P (MAP) Pulse Ox O2 Delivery O2 Flow Rate FiO2 06/01/19 14:00 71 117/58 06/01/19 12:00 15.0 06/01/19 12:00 99.5 64 21 117/58 (77) 94 06/01/19 12:00 71 06/01/19 09:00 Non-Rebreather 15.0 06/01/19 08:00 76 06/01/19 08:00 99.9 70 21 115/54 (74) 94 06/01/19 08:00 14.0 06/01/19 06:32 68 121/57 06/01/19 04:00 86 06/01/19 04:00 99.9 68 21 121/57 (78) 98 06/01/19 04:00 15.0 06/01/19 00:00 99.4 81 21 138/55 (82) 95 06/01/19 00:00 15.0 06/01/19 00:00 75 05/31/19 21:09 73 140/57 05/31/19 21:00 Non-Rebreather 15.0 05/31/19 20:00 99.9 73 23 140/57 (84) 98 05/31/19 20:00 15.0 05/31/19 20:00 62 05/31/19 16:00 15.0 05/31/19 16:00 60 05/31/19 16:00 97.1 69 18 107/67 (80) 95 Intake and Output 05/31/19 06/01/19 19:00 07:00 Intake Total 600 ml 180 ml Output Total 6000 ml 450 ml Balance -5400 ml -270 ml Intake Oral 600 ml 180 ml Output Urine Total 450 ml Hemodialysis UF 6000 ml # Voids 1 1 Laboratory Tests 06/01/19 13:10: White Blood Count 5.0, Red Blood Count 3.76L, Hemoglobin 12.7, Hematocrit 38.6, Mean Corpuscular Volume 103H, Mean Corpuscular Hemoglobin 33.9H, Mean Corpuscular Hemoglobin Concent 33.0, Red Cell Distribution Width 14.3, Platelet Count 129L, Mean Platelet Volume 7.0, Neutrophils (%) (Auto) 84.8H, Lymphocytes (%) (Auto) 11.4L, Monocytes (%) (Auto) 3.3, Eosinophils (%) (Auto) 0.3, Basophils (%) (Auto) 0.2, Sodium Level 147H, Potassium Level 3.9, Chloride Level 106, Carbon Dioxide Level 28, Anion Gap 13, Blood Urea Nitrogen 41H, Creatinine 3.7H, Estimat Glomerular Filtration Rate 11.6, Glucose Level 97, Calcium Level 8.9, Phosphorus Level 3.7, Hepatitis B Surface Antigen [Pending], Hepatitis B Surface Antibody, Quant [Pending], Hepatitis C Antibody [Pending] Height (Feet): 5 Height (Inches): 2.00 Weight (Pounds): 126 General Appearance: no apparent distress EENT: normal ENT inspection Neck: normal alignment Cardiovascular: regular rhythm Respiratory/Chest: lungs clear Abdomen: no organomegaly Extremities: no edema Neurologic: medical management trainer II-XII grossly normal, disoriented Bruce Lainez MD Jun 01, 2019 15:20
[2019-06-01 16:00] VITALS: BP 137/49
--- NOTE | 2019-06-01 16:28 | NUR ---
NURSE NOTES: Per [facility] HD nurse, 2.5L out.
--- NOTE | 2019-06-01 19:34 | NUR ---
HAND-OFF: Report given to BRIDGETTE Maurer. Endorsed plan of care.
[2019-06-01 20:00] VITALS: BP 101/56
--- NOTE | 2019-06-01 20:00 | NUR ---
NURSE NOTES: RECEIVED PATIENT LYING IN BED, EYES OPEN, NON VERBAL, HEAD OF BED ELEVATED TO FACILITATE BREATHING, ALL NEEDS ANTICIPATED AND MET BY NURSING STAFF, TOLERATING NRM 15L, NO SIGNS AND SYMPTOMS OF ACUTE CARDIO RESPIRATORY DISTRESS/SHORTNESS OF BREATH, RIGHT UPPER ARM EDEMATOUS, ELEVATED ON PILLOW. HD TODAY, NO ADVERSE REACTION REPORTED, HD CATHETER RIGHT UPPER CHEST WALL, DRESSING DRY AND INTACT. ABDOMEN SOFT/NON DISTENDED/NON TENDER/BOWEL SOUNDS AUDIBLE, NO REPORT OF N/V/D. REPOSITIONED FOR COMFORT/PRESSURE RELIEF, TOLERATED WELL. SIDE RAILS UP X3, BED IN LOWEST POSITION FOR SAFETY, BED ALARM ACTIVATED FOR SAFETY. FREQUENT ROUNDING FOR SAFETY/NEEDS. CONTINUE WITH CURRENT PLAN OF CARE. NAD.
[2019-06-02] VITALS: BP 134/51
--- NOTE | 2019-06-02 02:32 | NUR ---
NURSE NOTES: RESTING WELL, NAD.
[2019-06-02 04:00] VITALS: BP 116/53
--- NOTE | 2019-06-02 05:44 | Progress Note ---
DATE: 06/01/2019 CARDIOLOGY PROGRESS NOTE SUBJECTIVE: The patient's condition remains critical. Prognosis guarded. She has low-grade temperatures. Vitals signs remained in the stable range. She continues to require treatment for COVID-19 infection. In addition, the patient has bacteremia and is on IV antimicrobials. Concern is raised over her PermCath. OBJECTIVE: LUNGS: Bilateral breath sounds. Rhonchi. CARDIAC: Regular rhythm and rate. Normal S1 and S2. A 1/6 systolic apical murmur. ABDOMEN: Soft. EXTREMITIES: Trace edema. VITAL SIGNS: Blood pressure 121/57, heart rate 68, respiratory rate 21. Monitored rhythm demand pacing. LABORATORY DATA: White count 5 and hemoglobin 12.7. Sodium 147, potassium 3.9, bicarb 28, BUN 41, and creatinine 3.7. IMPRESSION: 1. Bacteremia, sepsis, COVID-19. 2. Dehydration. 3. End-stage renal disease. 4. Permanent pacemaker. 5. Acute on chronic diastolic congestive heart failure. 6. Increased risk for endocarditis. 7. Acute myocardial ischemia and possible non-ST elevation infarction. PLAN: 1. Follow up cultures. 2. Echocardiogram pending. 3. Hemodialysis with ultrafiltration. 4. Continue hydroxychloroquine therapy. 5. Monitor for signs of cardiac toxicity including QT interval prolongation with ____. 6. Empiric antimicrobials. 7. May need PermCath removal and replacement. 8. We will follow. Brant Gould M.D. DR: ZARINA JOB#: [id number] CC:
--- NOTE | 2019-06-02 06:11 | NUR ---
NURSE NOTES: Assessed patient head to toe with charge nurse, Nam. Verified and reviewed all documentations by Nam.
[2019-06-02] MEDS: dilTIAZem HCl 60mg tab ORAL SCH ×3 (06:28→22:17)
--- NOTE | 2019-06-02 06:52 | NUR ---
NURSE NOTES: RESTED WELL, NO SIGNIFICANT CHANGE OF CONDITION NOTED THROUGHOUT THE NIGHT. SAFETY MAINTAINED. NAD.
--- NOTE | 2019-06-02 07:01 | NUR ---
HAND-OFF: Report given to JULIANNA WALKER.
--- NOTE | 2019-06-02 07:16 | NUR ---
NURSE NOTES: Received report from BRIDGETTE Maurer. Patient in bed resting, no active s/s cardiac, respiratory distress noticed at this time. Patient AOx0-1 open eyes spontaneously. A. Flutter with HR 67. IV on left hand 22G, asymptomatic, patent, intact. Patient on non-rebreather at 15L at this time, will try to titrate per Dr. Whitlock. Endorsed HD done yesterday 2.5L out. Bed in lowest position, side rails upx2, call light within reach, bed alarm on. Will continue to monitor.
[2019-06-02 08:00] VITALS: BP 135/62
--- NOTE | 2019-06-02 08:01 | General Progress Note ---
Assessment/Plan Problem List: (1) Paroxysmal a-fib ICD Codes: I48.0 - Paroxysmal atrial fibrillation SNOMED: 666318823 (2) Atrial fibrillation with rapid ventricular response ICD Codes: I48.91 - Unspecified atrial fibrillation SNOMED: 13353876, 646087144, 867537479338211 (3) Septic shock ICD Codes: A41.9 - Sepsis, unspecified organism; R65.21 - Severe sepsis with septic shock SNOMED: 42813000 (4) Hypoxia ICD Codes: R09.02 - Hypoxemia SNOMED: 772855086 (5) Pneumonia ICD Codes: J18.9 - Pneumonia, unspecified organism SNOMED: 029601267 (6) End stage renal disease ICD Codes: N18.6 - End stage renal disease SNOMED: 24697025 (7) History of end stage renal disease ICD Codes: Z87.448 - Personal history of other diseases of urinary system SNOMED: 914585199 (8) Suspected 2019 novel coronavirus infection ICD Codes: R68.89 - Other general symptoms and signs SNOMED: 624884350 Status: stable Assessment/Plan: Continue IV antibiotics per ID. Follow-up cultures. perm cath care. Coronavirus treatment per ID. Dialysis per renal. Supplemental oxygen titrate to keep sats greater than 92%. DVT and stress ulcer prophylaxis. Monitor blood pressure. Prognosis is guarded. Subjective Allergies: Coded Allergies: No Known Allergies (Unverified , 05/29/19) Subjective No overnight events. Stable on oxygen(NRB). has pills in her mouth, No fevers or chills. No distress. On IV antibiotics. cultures noted. Objective Last 24 Hour Vital Signs Date Time Temp Pulse Resp B/P (MAP) Pulse Ox O2 Delivery O2 Flow Rate FiO2 06/02/19 06:28 67 114/61 06/02/19 04:00 62 06/02/19 04:00 15.0 06/02/19 04:00 97.3 67 18 116/53 (74) 96 06/02/19 04:00 Non-Rebreather 15.0 06/02/19 00:00 Non-Rebreather 15.0 06/02/19 00:00 97.9 63 18 134/51 (78) 98 06/02/19 00:00 62 06/01/19 22:00 62 98/57 06/01/19 21:00 Non-Rebreather 15.0 06/01/19 20:00 15.0 06/01/19 20:00 98.3 61 20 101/56 (71) 94 06/01/19 20:00 81 06/01/19 16:00 15.0 06/01/19 16:00 67 06/01/19 16:00 97.9 60 21 137/49 (78) 92 06/01/19 14:00 71 117/58 06/01/19 12:00 15.0 06/01/19 12:00 99.5 64 21 117/58 (77) 94 06/01/19 12:00 71 06/01/19 09:00 Non-Rebreather 15.0 06/01/19 08:00 76 06/01/19 08:00 99.9 70 21 115/54 (74) 94 06/01/19 08:00 14.0 Intake and Output 06/01/19 06/02/19 19:00 07:00 Intake Total 180 ml Output Total 3000 ml Balance -3000 ml 180 ml Intake Oral 180 ml Hemodialysis UF 3000 ml Laboratory Tests 06/01/19 13:10: White Blood Count 5.0, Red Blood Count 3.76L, Hemoglobin 12.7, Hematocrit 38.6, Mean Corpuscular Volume 103H, Mean Corpuscular Hemoglobin 33.9H, Mean Corpuscular Hemoglobin Concent 33.0, Red Cell Distribution Width 14.3, Platelet Count 129L, Mean Platelet Volume 7.0, Neutrophils (%) (Auto) 84.8H, Lymphocytes (%) (Auto) 11.4L, Monocytes (%) (Auto) 3.3, Eosinophils (%) (Auto) 0.3, Basophils (%) (Auto) 0.2, Sodium Level 147H, Potassium Level 3.9, Chloride Level 106, Carbon Dioxide Level 28, Anion Gap 13, Blood Urea Nitrogen 41H, Creatinine 3.7H, Estimat Glomerular Filtration Rate 11.6, Glucose Level 97, Calcium Level 8.9, Phosphorus Level 3.7, Hepatitis B Surface Antigen [Pending], Hepatitis B Surface Antibody, Quant [Pending], Hepatitis C Antibody [Pending] Height (Feet): 5 Height (Inches): 2.00 Weight (Pounds): 79 General Appearance: WD/WN, lethargic, confused Neck: supple Cardiovascular: regular rhythm Respiratory/Chest: lungs clear Abdomen: normal bowel sounds, non tender, soft, no organomegaly Edema: no edema noted Arm (L), no edema noted Arm (R), no edema noted Leg (L), no edema noted Leg (R), no edema noted Pedal (L), no edema noted Pedal (R), no edema noted Generalized Objective chest wall perm cath Denis Whitlock MD Jun 02, 2019 08:00
[2019-06-02] MEDS: Aspirin EC 81mg tab ORAL SCH (08:17)
--- NOTE | 2019-06-02 10:26 | NUR ---
RD ASSESSMENT & RECOMMENDATIONS SEE CARE ACTIVITY FOR COMPLETE ASSESSMENT DAILY ESTIMATED NEEDS: Needs based on ESRD on HD 43.6kg per SNF wt 30-35 kcals/kg 5620-7771 total kcals 1.25-1.8 g protein/kg 55-78 g total protein Fluid per MD, on HD NUTRITION DIAGNOSIS: Increased kcal and pro needs r/t renal dysfunction as evidenced by pt w/ ESRD on HD. CURRENT DIET:Renal ms ground PO DIET RECOMMENDATIONS: Renal/ texture per WATCH REPAIR PERSON ADDITIONAL RECOMMENDATIONS: 1) SNF WT: 96# 2) Wound care: Add Nephrovite x1 daily, Add JASON BID Rec WC eval as able 3) Add NEPRO 1 tetra daily w/ variable po intake 4) Maintain calibrated bed scale wts daily 5) Monitor PO intake, need for temp NGT feeds
--- NOTE | 2019-06-02 10:28 | Pulmonology Progress Note ---
Assessment/Plan Assessment/Plan IMPRESSION: 1. Probable COVID-19 pneumonia. 2. Pulmonary edema. 3. ESRD, on dialysis. 4. CHF. 5. Atrial fibrillation. DISCUSSION: I do not see a clear evidence of an effusion; however, the film is rotated with obscuring of the left lower lung field due to enlarged cardiac silhouette; her right lung field has extensive infiltrates. I will follow carefully. Agree with oxygen and pulmonary hygiene. Aleks Cabrera M.D. Subjective Interval Events: Breathing 18-20 per mninute; on 15L/min NRBM Constitutional: Reports: no symptoms HEENT: Repors: no symptoms Respiratory: Reports: no symptoms Cardiovascular: Reports: no symptoms Gastrointestinal/Abdominal: Reports: no symptoms Allergies: Coded Allergies: No Known Allergies (Unverified , 05/29/19) Objective Last 24 Hour Vital Signs Date Time Temp Pulse Resp B/P (MAP) Pulse Ox O2 Delivery O2 Flow Rate FiO2 06/02/19 09:00 Non-Rebreather 15.0 06/02/19 08:00 15.0 06/02/19 08:00 99.3 67 18 135/62 (86) 93 06/02/19 08:00 63 06/02/19 06:28 67 114/61 06/02/19 04:00 62 06/02/19 04:00 15.0 06/02/19 04:00 97.3 67 18 116/53 (74) 96 06/02/19 04:00 Non-Rebreather 15.0 06/02/19 00:00 Non-Rebreather 15.0 06/02/19 00:00 97.9 63 18 134/51 (78) 98 06/02/19 00:00 62 06/01/19 22:00 62 98/57 06/01/19 21:00 Non-Rebreather 15.0 06/01/19 20:00 15.0 06/01/19 20:00 98.3 61 20 101/56 (71) 94 06/01/19 20:00 81 06/01/19 16:00 15.0 06/01/19 16:00 67 06/01/19 16:00 97.9 60 21 137/49 (78) 92 06/01/19 14:00 71 117/58 06/01/19 12:00 15.0 06/01/19 12:00 99.5 64 21 117/58 (77) 94 06/01/19 12:00 71 Intake and Output 06/01/19 06/02/19 19:00 07:00 Intake Total 180 ml Output Total 3000 ml Balance -3000 ml 180 ml Intake Oral 180 ml Hemodialysis UF 3000 ml General Appearance: no acute distress HEENT: normocephalic Respiratory/Chest: chest wall non-tender, lungs clear Cardiovascular: normal peripheral pulses Abdomen: normal bowel sounds Microbiology Date/Time Source Procedure Growth Status 05/31/19 14:15 Blood Blood Culture - Preliminary NO GROWTH AFTER 24 HOURS Resulted 05/31/19 14:15 Blood Blood Culture - Preliminary NO GROWTH AFTER 24 HOURS Resulted Laboratory Tests 06/01/19 13:10: White Blood Count 5.0, Red Blood Count 3.76L, Hemoglobin 12.7, Hematocrit 38.6, Mean Corpuscular Volume 103H, Mean Corpuscular Hemoglobin 33.9H, Mean Corpuscular Hemoglobin Concent 33.0, Red Cell Distribution Width 14.3, Platelet Count 129L, Mean Platelet Volume 7.0, Neutrophils (%) (Auto) 84.8H, Lymphocytes (%) (Auto) 11.4L, Monocytes (%) (Auto) 3.3, Eosinophils (%) (Auto) 0.3, Basophils (%) (Auto) 0.2, Sodium Level 147H, Potassium Level 3.9, Chloride Level 106, Carbon Dioxide Level 28, Anion Gap 13, Blood Urea Nitrogen 41H, Creatinine 3.7H, Estimat Glomerular Filtration Rate 11.6, Glucose Level 97, Calcium Level 8.9, Phosphorus Level 3.7, Hepatitis B Surface Antigen [Pending], Hepatitis B Surface Antibody, Quant [Pending], Hepatitis C Antibody [Pending] 06/02/19 07:45: Random Vancomycin Level 11.5 Current Medications Medications (Trade) Dose Ordered Sig/Debra Route PRN Reason Start Time Stop Time Status Last Admin Dose Admin Acetaminophen (Tylenol) 650 mg Q4H PRN ORAL Temp >100.5 06/01/19 10:30 07/01/19 10:29 Aspirin (Ecotrin) 81 mg DAILY ORAL 05/30/19 09:00 07/14/19 08:59 06/02/19 08:17 Diltiazem HCl (Cardizem) 60 mg EVERY 8 HOURS ORAL 05/31/19 14:00 06/30/19 13:59 06/02/19 06:28 Hydroxychloroquine Sulfate (Plaquenil) 200 mg TWICE A DAY ORAL 05/31/19 09:00 06/03/19 18:01 06/02/19 08:17 Sevelamer Carbonate (Renvela) 800 mg TIAC ORAL 05/30/19 06:55 08/28/19 06:54 06/02/19 06:28 Vancomycin HCl (Vanco rx to dose) 1 ea DAILY PRN MISC Per rx protocol 05/31/19 12:00 06/30/19 11:59 Vancomycin HCl 750 mg/Sodium Chloride 275 ml @ 183.333 mls/hr ONCE ONCE IVPB 06/02/19 11:00 06/02/19 12:29 Aleks Cabrera MD Jun 02, 2019 10:28
[2019-06-02] MEDS ORDERED: Vancomycin 750mg/NS 275ml IVPB ONE ×2 (11:00)
--- NOTE | 2019-06-02 11:31 | Infectious Diseases Prog Note ---
Assessment/Plan Assessment/Plan antibiotics : vancomycin iv, hydroxychloroquine A 1. Covid 19 pneumonia 2. renal failure on dialysis 3. + blood cultures with coag neg staph likely contaminated 4. hypertension 5. dementia 6. atrial fibrillation P 1. continue hydroxychloroquine 1 more day 2. d/c iv vancomycin 3. continue isolation 4. will follow up cultures Subjective ROS Limited/Unobtainable: Yes Allergies: Coded Allergies: No Known Allergies (Unverified , 05/29/19) Objective Vital Signs Last 24 Hour Vital Signs Date Time Temp Pulse Resp B/P (MAP) Pulse Ox O2 Delivery O2 Flow Rate FiO2 06/02/19 09:00 Non-Rebreather 15.0 06/02/19 08:00 15.0 06/02/19 08:00 99.3 67 18 135/62 (86) 93 06/02/19 08:00 63 06/02/19 06:28 67 114/61 06/02/19 04:00 62 06/02/19 04:00 15.0 06/02/19 04:00 97.3 67 18 116/53 (74) 96 06/02/19 04:00 Non-Rebreather 15.0 06/02/19 00:00 Non-Rebreather 15.0 06/02/19 00:00 97.9 63 18 134/51 (78) 98 06/02/19 00:00 62 06/01/19 22:00 62 98/57 06/01/19 21:00 Non-Rebreather 15.0 06/01/19 20:00 15.0 06/01/19 20:00 98.3 61 20 101/56 (71) 94 06/01/19 20:00 81 06/01/19 16:00 15.0 06/01/19 16:00 67 06/01/19 16:00 97.9 60 21 137/49 (78) 92 06/01/19 14:00 71 117/58 06/01/19 12:00 15.0 06/01/19 12:00 99.5 64 21 117/58 (77) 94 06/01/19 12:00 71 Height (Feet): 5 Height (Inches): 2.00 Weight (Pounds): 78 Microbiology Date/Time Source Procedure Growth Status 05/31/19 14:15 Blood Blood Culture - Preliminary NO GROWTH AFTER 24 HOURS Resulted 05/31/19 14:15 Blood Blood Culture - Preliminary NO GROWTH AFTER 24 HOURS Resulted Laboratory Tests Test 06/01/19 13:10 06/02/19 07:45 White Blood Count 5.0 K/UL (4.8-10.8) Red Blood Count 3.76 M/UL (4.20-5.40) L Hemoglobin 12.7 G/DL (12.0-16.0) Hematocrit 38.6 % (37.0-47.0) Mean Corpuscular Volume 103 FL (80-99) H Mean Corpuscular Hemoglobin 33.9 PG (27.0-31.0) H Mean Corpuscular Hemoglobin Concent 33.0 G/DL (32.0-36.0) Red Cell Distribution Width 14.3 % (11.6-14.8) Platelet Count 129 K/UL (150-450) L Mean Platelet Volume 7.0 FL (6.5-10.1) Neutrophils (%) (Auto) 84.8 % (45.0-75.0) H Lymphocytes (%) (Auto) 11.4 % (20.0-45.0) L Monocytes (%) (Auto) 3.3 % (1.0-10.0) Eosinophils (%) (Auto) 0.3 % (0.0-3.0) Basophils (%) (Auto) 0.2 % (0.0-2.0) Sodium Level 147 MMOL/L (136-145) H Potassium Level 3.9 MMOL/L (3.5-5.1) Chloride Level 106 MMOL/L (98-107) Carbon Dioxide Level 28 MMOL/L (21-32) Anion Gap 13 mmol/L (5-15) Blood Urea Nitrogen 41 mg/dL (7-18) H Creatinine 3.7 MG/DL (0.55-1.30) H Estimat Glomerular Filtration Rate 11.6 mL/min (>60) Glucose Level 97 MG/DL (74-106) Calcium Level 8.9 MG/DL (8.5-10.1) Phosphorus Level 3.7 MG/DL (2.5-4.9) Hepatitis B Surface Antigen Pending Hepatitis B Surface Antibody, Quant Pending Hepatitis C Antibody Pending Random Vancomycin Level 11.5 ug/mL Current Medications Medications (Trade) Dose Ordered Sig/Debra Route PRN Reason Start Time Stop Time Status Last Admin Dose Admin Acetaminophen (Tylenol) 650 mg Q4H PRN ORAL Temp >100.5 06/01/19 10:30 07/01/19 10:29 Aspirin (Ecotrin) 81 mg DAILY ORAL 05/30/19 09:00 07/14/19 08:59 06/02/19 08:17 Diltiazem HCl (Cardizem) 60 mg EVERY 8 HOURS ORAL 05/31/19 14:00 06/30/19 13:59 06/02/19 06:28 Hydroxychloroquine Sulfate (Plaquenil) 200 mg TWICE A DAY ORAL 05/31/19 09:00 06/03/19 18:01 06/02/19 08:17 Sevelamer Carbonate (Renvela) 800 mg TIAC ORAL 05/30/19 06:55 08/28/19 06:54 06/02/19 06:28 Vancomycin HCl (Vanco rx to dose) 1 ea DAILY PRN MISC Per rx protocol 05/31/19 12:00 06/30/19 11:59 Vancomycin HCl 750 mg/Sodium Chloride 275 ml @ 183.333 mls/hr ONCE ONCE IVPB 06/02/19 11:00 06/02/19 12:29 Dwight Soto MD Jun 02, 2019 11:31
[2019-06-02 12:00] VITALS: BP 155/61
--- NOTE | 2019-06-02 14:37 | NUR ---
CASE MANAGEMENT:REVIEW 88 YR OLD FEMALE BI[facility] FROM [facility] CC: SOB. SATURATION 88% ON RA PMH: TESTED POSITIVE FOR COVID [address] [facility]. ESRD SI: SUSPECTED COVID 19 99.1 62 26 155/74 96% ON NON REBREATHER PLT-117 K+5.2 BUN+48 CR+3.8 TROPONIN(+) 0.155 IS: IV AZITHROMYCIN PLAQUENIL PO ASA IA CHEST XRAY : TO TELEMETRY 06/02/19 SI: PROBABLE COVID 19 PNEUMONIA CHF. AFIB. ESRD 99.3 67 18 135/62 93% ON 15L NON REBREATHER IS: IV VANCOMYCIN X1 CARDIZEM PO Q8HRS PLAQUENIL PO BID ASA PO QD RENVELA PO TID AC : TELEMETRY STATUS DCP: [facility] PLAN: COVID 19 TEST PENDING Addendum: 06/02/19 at 1610 by HARJIT EMERY LVN LVN INTERQUAL CRITERIA MET
--- NOTE | 2019-06-02 15:39 | Nephrology Progress Note ---
Assessment/Plan Problem List: (1) End stage renal disease (2) Pneumonia (3) Hypoxia (4) Suspected 2019 novel coronavirus infection (5) Paroxysmal a-fib (6) CHF (congestive heart failure) Plan fluid removal on HD for chfrx for possible covid19 per ID Subjective ROS Limited/Unobtainable: Yes Objective Objective Last 24 Hour Vital Signs Date Time Temp Pulse Resp B/P (MAP) Pulse Ox O2 Delivery O2 Flow Rate FiO2 06/02/19 15:22 64 155/61 06/02/19 09:00 Non-Rebreather 15.0 06/02/19 08:00 15.0 06/02/19 08:00 99.3 67 18 135/62 (86) 93 06/02/19 08:00 63 06/02/19 06:28 67 114/61 06/02/19 04:00 62 06/02/19 04:00 15.0 06/02/19 04:00 97.3 67 18 116/53 (74) 96 06/02/19 04:00 Non-Rebreather 15.0 06/02/19 00:00 Non-Rebreather 15.0 06/02/19 00:00 97.9 63 18 134/51 (78) 98 06/02/19 00:00 62 06/01/19 22:00 62 98/57 06/01/19 21:00 Non-Rebreather 15.0 06/01/19 20:00 15.0 06/01/19 20:00 98.3 61 20 101/56 (71) 94 06/01/19 20:00 81 06/01/19 16:00 15.0 06/01/19 16:00 67 06/01/19 16:00 97.9 60 21 137/49 (78) 92 Intake and Output 06/01/19 06/02/19 19:00 07:00 Intake Total 180 ml Output Total 3000 ml Balance -3000 ml 180 ml Intake Oral 180 ml Hemodialysis UF 3000 ml Laboratory Tests 06/02/19 07:45: Random Vancomycin Level 11.5 Height (Feet): 5 Height (Inches): 2.00 Weight (Pounds): 78 General Appearance: lethargic EENT: normal ENT inspection Neck: normal alignment Cardiovascular: regular rhythm Respiratory/Chest: lungs clear Abdomen: soft Extremities: no edema 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
[2019-06-02 16:00] VITALS: BP 110/65
[2019-06-02] MEDS ORDERED: Heparin Sod 1000 units/ml 10ml IV PRN (16:00)
--- NOTE | 2019-06-02 16:53 | NUR ---
NURSE NOTES: Paged Dr. Cabrera regarding non-rebreather. MD made aware patient was on non-rebreather 15L no prn RT therapy order at this time. Per MD keep non-rebreather 15L, no new order received at this time. Will continue to monitor.
--- NOTE | 2019-06-02 19:58 | NUR ---
NURSE NOTES: Received pt from JULIANNA Fleming. Pt is awake and resting in bed in no acute distress. nasal cannula on flowing O2, HOB elevated. Iv site intact. Bed locked in lowest position bed alarm seasonal clerk light within reach. Isolation precautions active. Will continue with plan of care.
[2019-06-02 20:00] VITALS: BP 115/53
--- NOTE | 2019-06-02 20:14 | NUR ---
NURSE NOTES: Called [facility] Nephrology tele [phone] spoke with Aliyah and informed patient schedule for HD tomorrow 06/03/19.
--- NOTE | 2019-06-02 20:15 | NUR ---
HAND-OFF: Report given to JULIANNA Cardona. Endorsed plan of care.
[2019-06-03] VITALS: BP 133/52
[2019-06-03 04:00] VITALS: BP 130/55
[2019-06-03] MEDS: dilTIAZem HCl 60mg tab ORAL SCH ×2 (06:00→14:05)
--- NOTE | 2019-06-03 07:07 | NUR ---
HAND-OFF: Report given to Liz LEVINE. Patient stable. Plan of care endorsed
--- NOTE | 2019-06-03 07:59 | Progress Note ---
DATE: 06/02/2019 CARDIOLOGY PROGRESS NOTE SUBJECTIVE: The patient remains on antimicrobials for management of coronavirus infection by COVID-19. The patient is congested and hypoxic with respiratory distress, still on a non-rebreather mask. PHYSICAL EXAMINATION: VITAL SIGNS: Blood pressure 116/53, pulse 67, respirations 18, afebrile. Monitor reveals AFib with demand ventricular pacing. QTc interval is not prolonged over 500 milliseconds. PermCath site reveal some scant drainage, but no erythema. LUNGS: With coarse breath sounds, rhonchi, rales. CARDIAC: Irregularly irregular rhythm. Normal S1, S2. ABDOMEN: Soft. EXTREMITIES: No edema. IMPRESSION: 1. COVID-19 pneumonia. 2. End-stage renal disease. 3. Paroxysmal atrial fibrillation. 4. Permanent pacemaker. 5. Cerebrovascular disease with dementia. 6. Sepsis with recovered shock. 7. Hypoxia. 8. Possible PermCath site infection. 9. Bacteremia and endocarditis risk. 10. Resolved myocardial ischemia and uncomplicated non-ST elevation myocardial infarction. PLAN: 1. Antimicrobial therapy per Infectious Disease information systems consultant. 2. Hemodialysis with ultrafiltration. 3. Respiratory hygiene. 4. Await followup blood cultures. 5. Continue cardiac monitoring. 6. Reassess for PermCath removal. Brant Gould M.D. DR: BELL JOB#: [id number] CC:
[2019-06-03 08:00] VITALS: BP 156/58
--- NOTE | 2019-06-03 08:29 | NUR ---
NURSE NOTES: Received patient from Meghana Cardona. Patient is awake laying comfortably in bed. NO signs and symoptoms of distress. VSS. Non re-rebreather mask 15 L o2 sat 98%. fall/aspiration precautions in place. Call bejarano within patients reached. For HD today. will continue plan of care.
[2019-06-03] MEDS: Aspirin EC 81mg tab ORAL SCH (09:17)
--- NOTE | 2019-06-03 10:45 | Infectious Diseases Prog Note ---
Assessment/Plan Assessment/Plan antibiotics : vancomycin iv, hydroxychloroquine A 1. Covid 19 pneumonia test positive 4.11.20 s/p rx with hydroxychloroquine 2. renal failure on dialysis 3. coag neg staph sepsis 4. hypertension 5. dementia 6. atrial fibrillation P 1. d/c hydroxychloroquine 2. start iv vancomycin 3. continue isolation 4. will follow up cultures Subjective ROS Limited/Unobtainable: Yes Allergies: Coded Allergies: No Known Allergies (Unverified , 05/29/19) Objective Vital Signs Last 24 Hour Vital Signs Date Time Temp Pulse Resp B/P (MAP) Pulse Ox O2 Delivery O2 Flow Rate FiO2 06/03/19 08:00 98.7 64 18 156/58 (90) 97 06/03/19 08:00 70 06/03/19 06:00 82 127/62 06/03/19 04:00 15.0 06/03/19 04:00 99.0 62 18 130/55 (80) 96 06/03/19 03:41 62 06/03/19 00:00 99.4 79 19 133/52 (79) 95 06/02/19 23:30 79 06/02/19 22:17 72 108/51 06/02/19 21:00 Non-Rebreather 15.0 06/02/19 20:00 99.4 62 20 115/53 (73) 96 06/02/19 20:00 15.0 06/02/19 20:00 62 06/02/19 16:15 98.8 06/02/19 16:00 15.0 06/02/19 16:00 98.8 64 20 110/65 (80) 94 06/02/19 16:00 61 06/02/19 15:22 64 155/61 06/02/19 12:00 100.1 64 20 155/61 (92) 94 06/02/19 12:00 61 06/02/19 12:00 15.0 Height (Feet): 5 Height (Inches): 2.00 Weight (Pounds): 83 Microbiology Date/Time Source Procedure Growth Status 05/31/19 14:15 Blood Blood Culture - Preliminary NO GROWTH AFTER 48 HOURS Resulted 05/31/19 14:15 Blood Blood Culture - Preliminary NO GROWTH AFTER 48 HOURS Resulted 05/31/19 16:45 Nasopharynx Coronavirus COVID-19 PCR (ADAM) - Final Complete Current Medications Medications (Trade) Dose Ordered Sig/Debra Route PRN Reason Start Time Stop Time Status Last Admin Dose Admin Acetaminophen (Tylenol) 650 mg Q4H PRN ORAL Temp >100.5 06/01/19 10:30 07/01/19 10:29 06/02/19 15:45 Aspirin (Ecotrin) 81 mg DAILY ORAL 05/30/19 09:00 07/14/19 08:59 06/03/19 09:17 Diltiazem HCl (Cardizem) 60 mg EVERY 8 HOURS ORAL 05/31/19 14:00 06/30/19 13:59 06/02/19 22:17 Heparin Sodium (Porcine) (Heparin Sod 1000 units/ml 10ml) 500 unit ONCE PRN IV FOR HD USE ONLY 06/02/19 16:00 06/04/19 23:59 Hydroxychloroquine Sulfate (Plaquenil) 200 mg TWICE A DAY ORAL 05/31/19 09:00 06/03/19 18:01 06/03/19 09:17 Sevelamer Carbonate (Renvela) 800 mg TIAC ORAL 05/30/19 06:55 08/28/19 06:54 06/02/19 15:44 Sodium Chloride 1,000 ml @ 500 mls/hr Q2H PRN IVLG sbp<90 during hd 06/02/19 16:00 06/04/19 23:59 Dwight Soto MD Jun 03, 2019 10:45
--- NOTE | 2019-06-03 11:24 | Pulmonology Progress Note ---
Assessment/Plan Assessment/Plan IMPRESSION: 1. Probable COVID-19 pneumonia. 2. Pulmonary edema. 3. ESRD, on dialysis. 4. CHF. 5. Atrial fibrillation. DISCUSSION: I do not see a clear evidence of an effusion; however, the film is rotated with obscuring of the left lower lung field due to enlarged cardiac silhouette; her right lung field has extensive infiltrates. I will follow carefully. Agree with oxygen and pulmonary hygiene. Aleks Cabrera M.D. Subjective Interval Events: None new Constitutional: Reports: no symptoms HEENT: Repors: no symptoms Respiratory: Reports: no symptoms Cardiovascular: Reports: no symptoms Gastrointestinal/Abdominal: Reports: no symptoms Allergies: Coded Allergies: No Known Allergies (Unverified , 05/29/19) Objective Last 24 Hour Vital Signs Date Time Temp Pulse Resp B/P (MAP) Pulse Ox O2 Delivery O2 Flow Rate FiO2 06/03/19 08:00 15.0 06/03/19 08:00 98.7 64 18 156/58 (90) 97 06/03/19 08:00 70 06/03/19 06:00 82 127/62 06/03/19 04:00 15.0 06/03/19 04:00 99.0 62 18 130/55 (80) 96 06/03/19 03:41 62 06/03/19 00:00 99.4 79 19 133/52 (79) 95 06/02/19 23:30 79 06/02/19 22:17 72 108/51 06/02/19 21:00 Non-Rebreather 15.0 06/02/19 20:00 99.4 62 20 115/53 (73) 96 06/02/19 20:00 15.0 06/02/19 20:00 62 06/02/19 16:15 98.8 06/02/19 16:00 15.0 06/02/19 16:00 98.8 64 20 110/65 (80) 94 06/02/19 16:00 61 06/02/19 15:22 64 155/61 06/02/19 12:00 100.1 64 20 155/61 (92) 94 06/02/19 12:00 61 06/02/19 12:00 15.0 Intake and Output 06/02/19 06/03/19 19:00 07:00 Intake Total 240 ml 10 ml Balance 240 ml 10 ml Intake Oral 240 ml 10 ml General Appearance: no acute distress HEENT: normocephalic Respiratory/Chest: chest wall non-tender, lungs clear Cardiovascular: normal peripheral pulses, normal rate Abdomen: normal bowel sounds Microbiology Date/Time Source Procedure Growth Status 05/31/19 14:15 Blood Blood Culture - Preliminary NO GROWTH AFTER 48 HOURS Resulted 05/31/19 14:15 Blood Blood Culture - Preliminary NO GROWTH AFTER 48 HOURS Resulted 05/31/19 16:45 Nasopharynx Coronavirus COVID-19 PCR ([facility]) - Final Complete Current Medications Medications (Trade) Dose Ordered Sig/Debra Route PRN Reason Start Time Stop Time Status Last Admin Dose Admin Acetaminophen (Tylenol) 650 mg Q4H PRN ORAL Temp >100.5 06/01/19 10:30 07/01/19 10:29 06/02/19 15:45 Aspirin (Ecotrin) 81 mg DAILY ORAL 05/30/19 09:00 07/14/19 08:59 06/03/19 09:17 Diltiazem HCl (Cardizem) 60 mg EVERY 8 HOURS ORAL 05/31/19 14:00 06/30/19 13:59 06/02/19 22:17 Heparin Sodium (Porcine) (Heparin Sod 1000 units/ml 10ml) 500 unit ONCE PRN IV FOR HD USE ONLY 06/02/19 16:00 06/04/19 23:59 Hydroxychloroquine Sulfate (Plaquenil) 200 mg TWICE A DAY ORAL 05/31/19 09:00 06/03/19 18:01 06/03/19 09:17 Sevelamer Carbonate (Renvela) 800 mg TIAC ORAL 05/30/19 06:55 08/28/19 06:54 06/03/19 11:09 Sodium Chloride 1,000 ml @ 500 mls/hr Q2H PRN IVLG sbp<90 during hd 06/02/19 16:00 06/04/19 23:59 Vancomycin HCl (Vanco rx to dose) 1 ea DAILY PRN MISC Per rx protocol 06/03/19 10:45 07/03/19 10:44 Aleks Cabrera MD Jun 03, 2019 11:24
[2019-06-03 12:00] VITALS: BP 140/76
--- NOTE | 2019-06-03 12:46 | General Progress Note ---
Assessment/Plan Problem List: (1) Paroxysmal a-fib ICD Codes: I48.0 - Paroxysmal atrial fibrillation SNOMED: 170794689 (2) Atrial fibrillation with rapid ventricular response ICD Codes: I48.91 - Unspecified atrial fibrillation SNOMED: 24861615, 759086831, 901433961937743 (3) Septic shock ICD Codes: A41.9 - Sepsis, unspecified organism; R65.21 - Severe sepsis with septic shock SNOMED: 54012793 (4) Hypoxia ICD Codes: R09.02 - Hypoxemia SNOMED: 458705861 (5) Pneumonia ICD Codes: J18.9 - Pneumonia, unspecified organism SNOMED: 429091402 (6) End stage renal disease ICD Codes: N18.6 - End stage renal disease SNOMED: 69479634 (7) History of end stage renal disease ICD Codes: Z87.448 - Personal history of other diseases of urinary system SNOMED: 816337661 (8) Suspected 2019 novel coronavirus infection ICD Codes: R68.89 - Other general symptoms and signs SNOMED: 769182346 Status: stable Assessment/Plan: Continue IV antibiotics per ID. Follow-up cultures. perm cath care. Coronavirus treatment completed. Dialysis per renal. Supplemental oxygen titrate to keep sats greater than 92%. DVT and stress ulcer prophylaxis. Monitor blood pressure. encourage pos. asp precautions. Prognosis is guarded. Subjective ROS Limited/Unobtainable: No Constitutional: Reports: fever, malaise, weakness HEENT: Reports: no symptoms Cardiovascular: Reports: no symptoms Respiratory: Reports: cough, shortness of breath Gastrointestinal/Abdominal: Reports: poor appetite Genitourinary: Reports: no symptoms Neurologic/Psychiatric: Reports: no symptoms Endocrine: Reports: no symptoms Hematologic/Lymphatic: Reports: anemia Allergies: Coded Allergies: No Known Allergies (Unverified , 05/29/19) All Systems: reviewed and negative except above Subjective There are no significant changes overnight. Patient remains somnolent sleepy and withdrawn. O2 saturations are stable on nonrebreather mask. Patient completed treatment for her coronavirus. Remains on IV vancomycin. P.o. intake is poor. Fevers have mostly resolved. Objective Last 24 Hour Vital Signs Date Time Temp Pulse Resp B/P (MAP) Pulse Ox O2 Delivery O2 Flow Rate FiO2 06/03/19 12:00 100.0 73 18 140/76 (97) 93 06/03/19 12:00 15.0 06/03/19 09:00 Non-Rebreather 15.0 06/03/19 08:00 15.0 06/03/19 08:00 98.7 64 18 156/58 (90) 97 06/03/19 08:00 70 06/03/19 06:00 82 127/62 06/03/19 04:00 15.0 06/03/19 04:00 99.0 62 18 130/55 (80) 96 06/03/19 03:41 62 06/03/19 00:00 99.4 79 19 133/52 (79) 95 06/02/19 23:30 79 06/02/19 22:17 72 108/51 06/02/19 21:00 Non-Rebreather 15.0 06/02/19 20:00 99.4 62 20 115/53 (73) 96 06/02/19 20:00 15.0 06/02/19 20:00 62 06/02/19 16:15 98.8 06/02/19 16:00 15.0 06/02/19 16:00 98.8 64 20 110/65 (80) 94 06/02/19 16:00 61 06/02/19 15:22 64 155/61 Intake and Output 06/02/19 06/03/19 19:00 07:00 Intake Total 240 ml 10 ml Balance 240 ml 10 ml Intake Oral 240 ml 10 ml Height (Feet): 5 Height (Inches): 2.00 Weight (Pounds): 83 Objective General Appearance: WD/WN, lethargic, confused Neck: supple Cardiovascular: regular rhythm Respiratory/Chest: lungs clear Abdomen: normal bowel sounds, non tender, soft, no organomegaly Edema: no edema noted Arm (L), no edema noted Arm (R), no edema noted Leg (L), no edema noted Leg (R), no edema noted Pedal (L), no edema noted Pedal (R), no edema noted Generalized Objective chest wall perm Denis Woods MD Jun 03, 2019 12:46
--- NOTE | 2019-06-03 14:25 | NUR ---
NURSE NOTES:WOUND CARE NOTES:Pt presented on admission with an area of non-blanching erythema lumbar spine. Non-blanching erythema sacrum with scattered areas of maceration within base of wound. Scattered areas of pink epithelial within wound also noted. Tx.Plan: Apply Moisture Barrier Paste to Sacrum. Cover with Optifoam Drsg. Change every 3 days and prn. Apply Cavilon Skin Barrier to Lumbar Spine. Cover with Optifoam drsg. Change every 7 days and prn. Apply Cavilon Skin Barrier to All bony prominences at risks for Skin Breakdown. Cover each site with Optifoam drsg. Change every 7 days and prn. Reposition at least every 2hours or as tolerated. Off-load heels with Pillow.
[2019-06-03 16:00] VITALS: BP 144/59
--- NOTE | 2019-06-03 16:45 | NUR ---
NURSE NOTES: Patients oral [id number]. Attempted to give oral tylenol but patient unable to swallow. ice pack applied and cooling measures initiated. Will notify MD and get rectal tylenol ordered.
--- NOTE | 2019-06-03 17:55 | NUR ---
RESPIRATORY NOTE: VIDEO GAMES STORYWRITER became code blue due to no breathing then asystolic. CPR performed by RT. Pulse palpable.Pt was intubated per Er. Doctor with ETT 7.0 @21cm lip line, secured by anchor fast. Transferred to ICU, and placed on the vent at 1755.
[2019-06-03] MEDS ORDERED: Docusate 100mg cap ORAL SCH (18:00)
--- NOTE | 2019-06-03 18:07 | NUR ---
CODE BLUE: Patient shallow breathing, non arousable to deep pain. unable to read pulse Ox and blood pressure. Pulse palpable but weak. VP CUSTOMER DEVELOPMENT called team arrived. Patient lost pulse Code blue called patient intubated #7, 21 cm at the lip. Dr. Chinyere arboleda transferred patient to ICU 246-A. Message left to Son next of kin awaiting call back. Report given to Meghana Varma. See Code sheet which remains on paper.
--- NOTE | 2019-06-03 18:50 | NUR ---
NURSE NOTES: Received patient via hospital bed from telemetry post code blue. Patient placed in 246-A, airborne precautions. Patient is orally intubated ET 7.0, 21cm lipline. Vent settings are AC 18, TV 400, FiO2 100%, PEEP 10. Patient saturating 88-93%. RT at bedside. Patient received with 22g peripheral IV on left wrist, permacath on the right upper chest, and left chest pacemaker. Patient was placed on the classroom monitor, pacing. BP 40/25, bolus NS 1L initiated. Attempted to insert another peripheral line, unsuccessful at this time. Temperature not reading at this time, placed patient on Andreina hugger. Bed locked and alarmed, side rails up x3.
--- NOTE | 2019-06-03 18:52 | Nephrology Progress Note ---
Assessment/Plan Problem List: (1) End stage renal disease (2) Pneumonia (3) Hypoxia (4) Suspected 2019 novel coronavirus infection Assessment: +for covid (5) Paroxysmal a-fib (6) CHF (congestive heart failure) Plan fluid removal on HD for chf rx for positive covid19 per ID, still dyspnea, high risk Subjective ROS Limited/Unobtainable: Yes Objective Objective Last 24 Hour Vital Signs Date Time Temp Pulse Resp B/P (MAP) Pulse Ox O2 Delivery O2 Flow Rate FiO2 06/03/19 17:55 69 20 100 06/03/19 17:55 69 20 93 Mechanical Ventilator 100 06/03/19 16:00 15.0 06/03/19 16:00 101.2 84 22 144/59 (87) 95 06/03/19 16:00 75 06/03/19 14:05 72 140/76 06/03/19 12:00 100.0 73 18 140/76 (97) 93 06/03/19 12:00 72 06/03/19 12:00 15.0 06/03/19 09:00 Non-Rebreather 15.0 06/03/19 08:00 15.0 06/03/19 08:00 98.7 64 18 156/58 (90) 97 06/03/19 08:00 70 06/03/19 06:00 82 127/62 06/03/19 04:00 15.0 06/03/19 04:00 99.0 62 18 130/55 (80) 96 06/03/19 03:41 62 06/03/19 00:00 99.4 79 19 133/52 (79) 95 06/02/19 23:30 79 06/02/19 22:17 72 108/51 06/02/19 21:00 Non-Rebreather 15.0 06/02/19 20:00 99.4 62 20 115/53 (73) 96 06/02/19 20:00 15.0 06/02/19 20:00 62 Intake and Output 06/02/19 06/03/19 19:00 07:00 Intake Total 240 ml 10 ml Balance 240 ml 10 ml Intake Oral 240 ml 10 ml Height (Feet): 5 Height (Inches): 2.00 Weight (Pounds): 81 General Appearance: moderate distress EENT: normal ENT inspection Neck: normal alignment Cardiovascular: regularly irregular Respiratory/Chest: rhonchi - bilaterally Abdomen: no organomegaly Extremities: trace edema Neurologic: state game protector II-XII grossly normal Bruce Lainez MD Jun 03, 2019 18:52
--- NOTE | 2019-06-03 19:20 | NUR ---
cancel hd because unstable with code blue
--- NOTE | 2019-06-03 19:25 | NUR ---
CODE BLUE: Summoned to patients room. No B/P on the bedside monitor, A paced. Code mirian called @ 1903. RT and RN responded at bedside. ER MD present at the unit. Per RN at bedside no pulse noted. ER MD at bedside to assess patient and pronounced patient @1914. Son Iggy Huntley made aware, will call homes. Dr. Whitlock notified and made aware. See Code sheet which remains on paper.
--- NOTE | 2019-06-03 19:30 | NUR ---
NURSE NOTES: No BP on the monitor, called code blue at 1904. Primary RN Liz Taveras, PAULO Amaro present in the unit. RT and RN responded at bedside. Per RN at bedside, no pulse noted. Dr Amaro went inside the room to assess patient for pulse. PAULO pronounced patient at 1914. Dr Whitlock notified at 1920 via telephone. Patient's son was notified by JULIANNA Hill.
--- NOTE | 2019-06-03 19:51 | NUR ---
NURSE NOTES: Left a message for Dr Soto that patient at 1915 today.
--- NOTE | 2019-06-03 20:40 | Emergency Room Report ---
History of Present Illness General Chief Complaint: Dyspnea/Respdistress Source: Medical Record Present Illness Allergies: Coded Allergies: No Known Allergies (Unverified , 05/29/19) COVID-19 Screening Contact w/high risk pt: Yes Recent Travel to affected area: No Experienced COVID-19 symptoms?: Yes COVID-19 symptoms experienced: Shortness of Breath Nursing Documentation-PMH Hx Cardiac Problems: Yes Hx Hypertension: Yes Hx Pacemaker: Yes Hx Cancer: No Hx Gastrointestinal Problems: No Hx Dialysis: Yes Hx Neurological Problems: Yes Hx Dementia: Yes Physical Exam Vital Signs Date Time Temp Pulse Resp B/P (MAP) Pulse Ox O2 Delivery O2 Flow Rate FiO2 05/30/19 07:00 97.2 62 17 118/101 98 Non-Rebreather 15.0 06/03/19 17:55 100 Procedures CPR/Code Blue CPR/Code Blue Narrative Upon arrival to CODE BLUE patient has received epi and atropine Patient has a palpable pulse Required airway intubation as she was unresponsive patient did not require any medication Given her lack of any airway reflexes Intubated with 7.0 ET tube without any difficulty Full PAPR here given the patient's covid-19 status Patient transferred to ICU in critical condition Intubation Intubation : Consent: Emergent Intubation Method: orotracheal Tube Size (cm): 7.0 Breath Sounds after Intubation: equal Post Intubation Xray: No - ordered however was not performed Attempts: One Patient Tolerated: Well Complications: None Medical Decision Making Diagnostic Impression: Primary Impression: Suspected 2019 novel coronavirus infection Additional Impressions: History of end stage renal disease Hypoxia Last Vital Signs Date Time Temp Pulse Resp B/P (MAP) Pulse Ox O2 Delivery O2 Flow Rate FiO2 06/03/19 17:55 69 20 100 06/03/19 17:55 93 Mechanical Ventilator 06/03/19 16:00 15.0 06/03/19 16:00 101.2 144/59 (87) Disposition: ADMITTED INPATIENT Condition: Serious Referrals: NON PHYSICIAN (PCP) Tim Suarez DO Jun 03, 2019 20:40
--- NOTE | 2019-06-03 20:42 | Emergency Room Report ---
History of Present Illness General Chief Complaint: Dyspnea/Respdistress Source: Medical Record Present Illness Allergies: Coded Allergies: No Known Allergies (Unverified , 05/29/19) COVID-19 Screening Contact w/high risk pt: Yes Recent Travel to affected area: No Experienced COVID-19 symptoms?: Yes COVID-19 symptoms experienced: Shortness of Breath Nursing Documentation-PMH Hx Cardiac Problems: Yes Hx Hypertension: Yes Hx Pacemaker: Yes Hx Cancer: No Hx Gastrointestinal Problems: No Hx Dialysis: Yes Hx Neurological Problems: Yes Hx Dementia: Yes Physical Exam Vital Signs Date Time Temp Pulse Resp B/P (MAP) Pulse Ox O2 Delivery O2 Flow Rate FiO2 05/30/19 07:00 97.2 62 17 118/101 98 Non-Rebreather 15.0 06/03/19 17:55 100 Procedures CPR/Code Blue CPR/Code Blue Narrative Upon arrival to the floor patient appears mottled No palpable pulses X-ray shows worsening findings patient has been recently intubated by myself Multiple significant comorbidities At this time patient does not appear futile And given the clinical evaluation with pupils fixed and dilated at 4 mm no palpable pulses in asystole Patient was recently coded received atropine and epinephrine At this time attempts appear to be futile Patient was pronounced 19:15 Medical Decision Making Diagnostic Impression: Primary Impression: Suspected 2019 novel coronavirus infection Additional Impressions: History of end stage renal disease Hypoxia Last Vital Signs Date Time Temp Pulse Resp B/P (MAP) Pulse Ox O2 Delivery O2 Flow Rate FiO2 06/03/19 17:55 69 20 100 06/03/19 17:55 93 Mechanical Ventilator 06/03/19 16:00 15.0 06/03/19 16:00 101.2 144/59 (87) Disposition: ADMITTED INPATIENT Condition: Serious Referrals: NON PHYSICIAN (PCP) Tim Suarez DO Jun 03, 2019 20:42
--- NOTE | 2019-06-04 02:30 | Progress Note ---
DATE: 06/03/2019 CARDIOLOGY PROGRESS NOTE SUBJECTIVE: Condition has been deteriorating. Patient continues to have fevers, congestion, and shortness of breath on a non-rebreather mask. She is withdrawn and lethargic. PHYSICAL EXAMINATION: VITAL SIGNS: Blood pressure 140/76, heart rate 73, respirations 18, temperature 100. LUNGS: Bilateral breath sounds. Rhonchi. CARDIAC: Regular rhythm and rate. Normal S1, S2. ABDOMEN: Soft. EXTREMITIES: No edema. Monitored rhythm paced. IMPRESSION: 1. COVID-19 pneumonia. 2. End-stage renal disease. 3. Staph aureus bacteremia. 4. Paroxysmal atrial fibrillation. 5. Permanent pacemaker. 6. Sepsis with recovered shock. 7. Bacteremia with endocarditis risk. 8. Non ST-elevation myocardial infarction. 9. Hypoxia and respiratory insufficiency. PLAN: 1. Antimicrobial and antiviral regimen per Infectious Disease sourcing consultant. 2. Respiratory hygiene. 3. Surveillance blood cultures. 4. Follow up for PermCath removal. 5. Hemodialysis with ultrafiltration. 6. Outpatient pacemaker interrogation once COVID infection clears. 7. Titrate anti-failure and anti anginal regimen. 8. Continue anti-platelet therapy and DVT prophylaxis. Brant Gould M.D. DR: ROBE JOB#: [id number] CC:
[2019-06-04] MEDS ORDERED: Heparin Sod 1000 units/ml 10ml IV PRN (06:00)
[2019-06-04] MEDS ORDERED: Milk of Magnesia 30ml Ud ORAL SCH (09:00)
--- NOTE | 2019-06-04 12:39 | Discharge Summary ---
Discharge Summary Discharge Summary _ SUMMARY DATE OF ADMISSION: 05/30/2019 DATE OF EXPIRATION: 06/03/2019 REASON FOR ADMISSION: 88 years old female with past medical history of end-stage renal disease, on hemodialysis, coronary artery disease, atrial fibrillation, hypertension, dementia, anemia, presented from the long-term facility due to hypoxia. Patient came from facility with multiple coronavirus diagnosed patients. Patient by herself was unable to provide any history. Patient required 100% nonrebreathing mask and was tachypneic . Chest x-ray revealed extensive diffuse interstitial and airspace disease throughout the right lung. May reflect pneumonia or pulmonary edema. Laboratory work-up revealed no leukocytosis, stable hemoglobin and hematocrit. Potassium 5.2. BUN 48, creatinine 3.8. Glucose 128. Lactic acid 1.8. Troponin 0.155. pro BNP > 35,000. EKG showed paced rhythm . Influenza screen test was negative. Patient was tested for COVID-19. Patient subsequently was admitted to monitored floor further management. CONSULTANTS: emergency nurse Dr. Gould pulmonary Dr. Cabrera ID specialist Dr. Soto assistant scientist Dr. Lainez HOSPITAL COURSE: Patient admitted to monitored floor and was kept on contact and droplet isolation. Antibiotics provided as per ID specialist recommendation. COVID 19 was detected. Patient started on hydroxychloroquine with close monitoring of QTc interval. Blood culture revealed Staph warneri . Repeated blood culture were negative. Cardiovascular regimen titrated as per emergency nurse. Repeated troponin 0.16. Echocardiogram was ordered. Cardiovascular regimen was further titrated based on clinical parameters including blood pressure and heart failure management. Antiplatelet therapy and DVT prophylaxis provided. Anti-failure and antianginal regimens titrated. Eyeglass Lens Cutter recommended outpatient pacemaker interrogation after COVID infection cleared. Patient demonstrated paroxysmal atrial fibrillation. Patient started on Cardizem for rate control . Hemodialysis with ultrafiltration provided with close monitoring of volumes, electrolytes and renal parameters. On 06/02 CODE BLUE was called and conducted as per ACLS protocol . Patient was intubated and transferred to ICU . Shortly afterwards patient coded again. Patient had no palpable pulses. Chest X-ray showed worsening findings. All attempts appeared tp be futile . Patient was pronounced at 19:15 on 06/03/19. Cause of : cardiopulmonary arrest secondary to COVID19 pneumonia FINAL DIAGNOSES: Sepsis Staph coagulase negative bacteremia (with endocarditis risk) COVID-19 pneumonia Status post cardiopulmonary arrest x2 Acute hypoxemic respiratory failure requiring intubation Pulmonary edema Acute on chronic diastolic congestive heart failure Paroxysmal atrial fibrillation Acute myocardial ischemia , probably NSTEMI Permanent pacemaker Hypertension Dementia End-stage renal disease , on hemodialysis Severe protein calorie malnutrition I have been assigned to dictate discharge summary for this account. I was not involved in the patient's management. Lolita Sparrow NP Jun 04, 2019 12:39
== END 2019-06-03 19:15 | disposition expired | DRG 871 ==
LOC: EDUNIT# 20:44 → EDBD 20:44 → EMR 21:01 → EDBEDREQ 05-30 09:28 → 2E 05-30 09:35 → EDBEDREQ 05-30 12:36 → 2E 05-30 12:38 → ICU 06-03 18:08
PROC: 5A1D70Z Performance of Urinary Filtration, Intermittent, Less than 6 Hours Per Day (ICD-10-PCS; principal; 2019-05-30)
DX: A41.1 Sepsis due to other specified staphylococcus (principal); U07.1 COVID-19; J12.89 Other viral pneumonia; R65.21 Severe sepsis with septic shock; N18.6 End stage renal disease; I50.33 Acute on chronic diastolic (congestive) heart failure; I21.4 Non-ST elevation (NSTEMI) myocardial infarction; E43 Unspecified severe protein-calorie malnutrition; I13.2 Hypertensive heart and chronic kidney disease with heart failure and with stage 5 chronic kidney disease, or end stage renal disease; I48.0 Paroxysmal atrial fibrillation; I25.10 Atherosclerotic heart disease of native coronary artery without angina pectoris; Z95.0 Presence of cardiac pacemaker; Z99.2 Dependence on renal dialysis; F01.50 Vascular dementia, unspecified severity, without behavioral disturbance, psychotic disturbance, mood disturbance, and anxiety; Z66 Do not resuscitate; R09.02 Hypoxemia
CPT/HCPCS: 36415; 71045; 80048; 80053; 80202; 82550; 82553; 83605; 83880; 84100; 84484; 85025; 86706; 86710; 86803; 87040; 87081; 87181; 87340; 87517; 87635; 93005; 94002; 94664; 96365; 99285